=== PATIENT | male | born 1990 | race Two or more races ===

== ENCOUNTER 2023-10-18 08:59 | Emergency (ER) | payer OTHER, SELFPAY ==
--- NOTE | ~2023-10-18 | CT_ITS ---
EXAMINATION: CT ABDOMEN AND PELVIS WITHOUT CONTRAST CLINICAL INFORMATION: Left flank pain radiating to left lower quadrant. COMPARISON: None available. TECHNIQUE: Multidetector volumetric imaging was performed from the superior aspect of the liver through the pubic symphysis. Sagittal and coronal reformatted images were obtained on the technologist's workstation. This CT examination was performed using dose optimization techniques as appropriate, variously including the following: *Automated exposure control *Adjustment of mA and/or kV according to patient size (this includes techniques or standardized protocols for targeted exams where dose is matched to indication/reason for exam; i.e. extremities or head) *Use of iterative reconstruction technique DLP: 504 mGy-cm FINDINGS: LUNG BASES: The visualized lung bases are unremarkable. LIVER, GALLBLADDER, AND BILIARY TREE: The liver is normal in size, shape, and attenuation. No focal hepatic lesion or biliary ductal dilatation is present. The gallbladder is unremarkable with no evidence of radiopaque gallstones, gallbladder wall thickening, or obvious pericholecystic inflammatory changes. PANCREAS: Unremarkable. SPLEEN: Unremarkable. ADRENAL GLANDS: Unremarkable. KIDNEYS AND URETERS: The kidneys are normal in size, shape, and attenuation. There is a 4 mm radiopaque nonobstructing calculi midpole right kidney. There is a 2 mm left UVJ partially obstructive stone with minimal dilatation of distal ureter. The stone is best visualized on axial image 69/3. BLADDER: Unremarkable. GASTROINTESTINAL TRACT: There is scattered stool and gas seen throughout the colon without significant distention. The small bowel loops are normal caliber. Appendix is normal caliber. ABDOMINAL WALL: No significant hernia is appreciated. LYMPH NODES: Normal. VASCULAR: Unremarkable. PELVIC VISCERA: Unremarkable. OSSEOUS STRUCTURES: No aggressive lytic or sclerotic process seen. CT/CT abdomen pelvis wo IV con IMPRESSION: 1. 2 mm partially obstructive left UVJ stone with minimal dilatation of distal ureter. 2. Nonobstructive 4 mm radiopaque calculi midpole right kidney. 3. Mild constipation. Fleischner guidelines were followed.
[2023-10-18 09:05] VITALS: BP 137/95; BP 162/102; PULSE 76; PULSE 96; RESP 18; TEMP 36.5; O2SAT 100; O2SAT 98; BMI 31.6
--- NOTE | 2023-10-18 09:29 | PC.NURSE ---
pt arrived via ambulance, a+o x3, c/o difficulty voiding since yesterday, voided small amounts throughout the day. woke up this morning with L flank pain that radiates to his scrotum and burning when he does void. pt was bladdeer scanned on arrival to the ed, results zero urine in his bladder. pt resting quietly, no apparent distress.
--- NOTE | 2023-10-18 10:27 | ED_ITS ---
HPI - Male Genitourinary General Chief complaint: Urogenital-Male Stated complaint: FLANK PAIN,DIFF URINATING X1 DAY PER EMS Time Seen by Provider: 10/18/23 10:16 Source: patient, RN notes reviewed and old records reviewed Mode of arrival: ambulatory History of Present Illness HPI Narrative: 33-year-old male with no significant past medical history presenting to the ED complaining of left flank pain radiating to left lower quadrant since this morning with associated urinary hesitancy and nausea. Admits pain was initially constant however improved at present. Denies injury/trauma or fall. Denies fever, chills, vomiting, diarrhea, testicular pain/swelling, hematuria Related Data Previous Rx's Medication Instructions Recorded ketorolac 10 mg tablet 10 mg PO TID PRN pain 5 days #15 10/18/23 tabs tamsulosin 0.4 mg capsule (Flomax) 0.4 mg PO DAILY #14 caps 10/18/23 Allergies Allergy/AdvReac Type Severity Reaction Status Date / Time No Known Allergies Allergy Verified 10/18/23 09:27 Review of Systems 2 Review of Systems: Constitutional: No Fever, No Chills, No Fatigue, No Malaise ENT/Mouth: No Ear Pain, No sore throat, No Rhinorrhea, No Swallowing Difficulty Eyes: No Eye Pain, No Swelling, No Redness, No Vision Changes Cardiovascular: No Chest Pain, No SOB Respiratory: No Cough, No Sputum, No Dyspnea Gastrointestinal: No Nausea, No Vomiting, No Diarrhea, No Constipation, + Abdominal pain Genitourinary: No irregular bleeding, No Dysuria, No Urinary Frequency, No Hematuria, No Urinary Incontinence/retention, No Urgency, + Flank Pain, No Urinary Flow Changes, + Hesitancy Musculoskeletal: No joint pain, No Myalgias, No Joint Swelling Skin: No Skin Lesions, No rash Neuro: No Weakness, No Headache Yes all other systems are reviewed and are negative Constitutional: Constitutional: Reports as per [facility] Past Medical History Attestation statement: The following information was validated with the patient. Source: old records reviewed Social History Smoked in Last 30 Days: No Use of substances other than those prescribed or required for medical reasons: No Advance Directives: No Advance Directives Information Provided: Yes Physical Exam 2 Vital Signs: Vital Signs: Last Vital Signs Temp 97.7 F 10/18/23 09:05 Pulse 88 10/18/23 13:00 Resp 16 10/18/23 13:00 BP 142/90 H 10/18/23 10:28 Pulse Ox 97 10/18/23 13:00 O2 Del Method Room Air 10/18/23 13:00 BMI result Body Mass Index 31.6 Const: General: cooperative, healthy appearing and no acute distress O rientation/consciousness: patient oriented x3 Limitations: no limitations HEENT: Head: Yes normal to inspection and Yes atraumatic Ears: hearing grossly normal bilaterally General nose exam: Normal external nose present Face and sinus: Yes normal facial exam Eyes: General: appearance normal, both eyes and all related structures EOM: EOMs intact bilaterally Neck: Neck: Yes normal visual inspection and Yes no meningeal signs Resp: Effort & Inspection: normal respiratory effort and no respiratory distress Cardio: Rate: regular rate GI: Inspection: Yes normal to inspection Palpation (GI): Soft to palpation, nontender, no guarding and not rigid : General: Yes CVA tenderness on the left Back/Spine/Pelvis: Back: CVA tenderness Skin: Rashes: no rashes Wounds: no wounds Neuro: General: patient oriented x3, tone normal and no meningeal signs C ranial nerves: Yes CN's II-XII intact bilaterally Gait exam (Neuro): Normal gait present Extrem: General: Yes normal to inspection Course Course Course Narrative: 1245-- WBC 12.6. labs otherwise reassuring. UA with RBCs, not infected CT abdomen pelvis wo IV con IMPRESSION: 1. 2 mm partially obstructive left UVJ stone with minimal dilatation of distal ureter. 2. Nonobstructive 4 mm radiopaque calculi midpole right kidney. 3. Mild constipation. Fleischner guidelines were followed. > on re-evaluation patient reports symptomatic improvement, urinating without any hesitancy or resistance. Results discussed with patient including worrisome signs and symptoms and strict return precautions, discussed needed close follow- up with Urology. Will initiate on Flomax/Toradol. Discussed when to return to the emergency department. They verbalized understanding and feel safe for discharge at this time. Medications Administered Discontinued Medications Generic Name Dose Route Start Last Admin Trade Name Freq PRN Reason Stop Dose Admin Sodium Chloride 1,000 mls @ 999 mls/hr 10/18/23 10:30 10/18/23 12:08 Ns IV 10/18/23 11:30 Infused .Q1H1M ALPESH Infusion Ketorolac Tromethamine 15 mg 10/18/23 10:16 10/18/23 10:55 Ketorolac Tromethamine 15 Mg/Ml Vial IVPUSH 10/18/23 10:17 15 mg ONCE ONE Administration Tamsulosin HCl 0.4 mg 10/18/23 12:19 10/18/23 12:27 Tamsulosin Hcl 0.4 Mg Capsule PO 10/18/23 12:20 0.4 mg ONCE ONE Administration Medical Decision Making Medical Decision Making MDM Narrative: 33-year-old male with no significant past medical history presenting to the ED complaining of left flank pain radiating to left lower quadrant since this morning with associated urinary hesitancy and nausea. On exam vital signs stable, NAD, nontoxic appearing, abdomen soft/nontender, left CVAT noted. Concern for renal stone/colic vs UTI/pyelo. Lower suspicion for diverticulitis/colitis or appendicitis. Unlikely to speculate torsion without pain. Plan: Labs, UA, CT AP, IVF, pain control, reassess Please refer to course for remaining clinical decision making, interpretation of labs/imaging results, and discussions with consultants and/or family members. Differential Diagnosis Differential Diagnoses: The differential diagnosis associated with the presentation includes As above Admission/Observation Consideration of admission/observation: Escalation of care including admission/observation considered Lab Data [facility] Lab Attestation statement: I reviewed the patient's lab results. 10/18/23 10:26 10/18/23 10:26 Labs: Lab Results 10/18/23 10/18/23 Range/Units 10:26 12:11 WBC 12.6 H (4.8-10.8) X10*3/uL RBC 5.15 (4.60-5.80) X10*6/uL Hgb 15.2 (14.0-18.0) g/dl Hct 44.1 (42.0-52.0) % MCV 85.6 (80.0-98.0) fL MCH 29.5 (27.0-33.0) pg MCHC 34.5 (31.0-36.0) g/dl RDW 12.0 (11.0-16.0) % Plt Count 263 (160-400) X10*3/uL MPV 9.3 L (9.4-12.4) fL Immature Gran % (Auto) 0.5 H (0.0-0.4) % Neut % (Auto) 72.3 (45-73) % Lymph % (Auto) 17.5 L (20-40) % Mobile % (Auto) 7.4 (2-11) % Eos % (Auto) 2.1 (0-4) % Baso % (Auto) 0.2 (0-2) % Lymph # (Auto) 2.2 (1.2-4.9) X10*3/uL Mobile # (Auto) 0.9 (0.1-1.2) X10*3/uL Eos # (Auto) 0.3 (0.0-0.4) X10*3/uL Baso # (Auto) 0.0 (0.0-0.2) X10*3/uL Abs Immat Gran (auto) 0.06 H (0.00-0.03) X10*3/uL Absolute Neuts (auto) 9.1 H (2.0-8.3) x10*3/uL Absolute Nucleated RBC 0.000 (0.0-0.012) X10*3/uL Nucleated RBC % (auto) 0.0 (0.0-0.2) /100WBC Sodium 138 (135-145) mmol/L Potassium 3.9 (3.3-5.1) mmol/L Chloride 106 (96-108) mmol/L Carbon Dioxide 27 (22-29) mmol/L Anion Gap 9 L (12-20) BUN 8 L (9-16) mg/dL Creatinine 0.83 (0.5-1.4) mg/dL Estim Creat Clear Calc 130.9 Estimated GFR > 60 Random Glucose 112 (60-115) mg/dL Calcium 9.2 (8.4-10.2) mg/dL Magnesium 2.0 (1.6-2.6) mg/dL Total Bilirubin 0.6 (0.0-1.0) mg/dL Direct Bilirubin 0.2 (0.0-0.5) mg/dL AST 18 (5-37) U/L ALT 21 (0-40) U/L Alkaline Phosphatase 77 (39-117) U/L Total Protein 7.2 (6.5-8.0) g/dL Albumin 4.5 (3.5-5.0) g/dL Lipase 23 (8-78) U/L Urine Color Yellow Urine Appearance Clear Urine pH 5.5 (5.0-9.0) Ur Specific [place] 1.025 (1.005-1.025) Urine Protein Negative (Neg-Trace) mg/dL Urine Glucose (UA) Negative (Negative) mg/dL Urine Ketones Negative (Negative) mg/dL Urine Blood Large (3+) H (Negative) Urine Nitrite Negative (Negative) Ur Leukocyte Esterase Negative (Negative) Urine RBC 11-20 H (0-2) /HPF Urine WBC 0-5 (0-5) /HPF Ur Squamous Epith Cells 0-2 (0-2) /HPF Urine Bacteria None Seen (None Seen) Hyaline Casts 0-2 (0-2) /LPF Radiology Impression Discussion of test interpretation with radiology: I have reviewed the radiologist's reading. External Record Review External record reviewed: Inpatient record, Office record, Outpatient record, Prior outpatient labs, Prior outpatient radiology, Primary care record and Outside ED record Tests considered The following testing was considered but not selected: As above Prescription Management I considered prescription management with: Pain Medication Discharge Plan Discharge Clinical Impression: Calculus of ureterovesical junction (UVJ) Patient Disposition: Home, Self-Care Instructions: Ureteral Stones (ED) Additional Instructions: You have a 2 mm partially obstructive left UVJ stone. This should pass on its own Flomax will help dilate the ureter Toradol as an anti-inflammatory/pain medication, take with food. Do not take both Toradol, Motrin/Advil/Aleve or ibuprofen as they are all similar medications You may also take Tylenol/acetaminophen FOLLOW-UP WITH UROLOGY If symptoms persist or worsen, pain becomes unbearable/constant you have nausea/vomiting, you were unable to urinate return to the ED Prescriptions: New ketorolac 10 mg tablet 10 mg PO TID PRN (Reason: pain) 5 Days Qty: 15 0RF tamsulosin [Flomax] 0.4 mg capsule 0.4 mg PO DAILY Qty: 14 0RF Interventions: ED Discharge Assessment Last Done: 10/18/23 12:59 Discharge Date/Time: 10/18/23 13:00
[2023-10-18 10:28] VITALS: BP 142/90; PULSE 70; RESP 16; O2SAT 100
[2023-10-18 10:32] LABS: MANUAL DIFF FLAG NO
[2023-10-18 10:33] LABS: Basophils Percent Auto 0.2 % (0-2); Eosinophils Absolute Auto 0.3 X10*3/uL (0.0-0.4); Eosinophils Percent Auto 2.1 % (0-4); Hematocrit 44.1 % (42.0-52.0); Hemoglobin 15.2 g/dl (14.0-18.0); Imm Gran Abs Auto 0.06 X10*3/uL (0.00-0.03); Imm Gran Pct Auto 0.5 % (0.0-0.4); Lymphocytes Absolute Auto 2.2 X10*3/uL (1.2-4.9); Lymphocytes Percent Auto 17.5 % (20-40); Mean Corpuscular HGB Conc 34.5 g/dl (31.0-36.0); Mean Corpuscular Hemoglobin 29.5 pg (27.0-33.0); Mean Corpuscular Volume 85.6 fL (80.0-98.0); Mean Platelet Volume 9.3 fL (9.4-12.4); Monocytes Absolute Auto 0.9 X10*3/uL (0.1-1.2); Monocytes Percent Auto 7.4 % (2-11); Neutrophils Absolute Auto 9.1 x10*3/uL (2.0-8.3); Neutrophils Percent Auto 72.3 % (45-73); Platelet Count 263 X10*3/uL (160-400); Red Blood Count 5.15 X10*6/uL (4.60-5.80); White Blood Count 12.6 X10*3/uL (4.8-10.8)
[2023-10-18 10:49] LABS: Alanine Aminotransferase 21 U/L (0-40); Albumin Level 4.5 g/dL (3.5-5.0); Alkaline Phosphatase 77 U/L (39-117); Anion Gap 9 (12-20); Aspartate Amino Transferase 18 U/L (5-37); Bilirubin Direct 0.2 mg/dL (0.0-0.5); Bilirubin Total 0.6 mg/dL (0.0-1.0); Blood Urea Nitrogen 8 mg/dL (9-16); Calcium 9.2 mg/dL (8.4-10.2); Carbon Dioxide 27 mmol/L (22-29); Chloride 106 mmol/L (96-108); Creatinine Clr Calc Pharmacy 130.9; Estimated Glomerular Filt Rate > 60; Glucose Random 112 mg/dL (60-115); Lipase 23 U/L (8-78); Potassium 3.9 mmol/L (3.3-5.1); Sodium 138 mmol/L (135-145); Total Protein 7.2 g/dL (6.5-8.0)
[2023-10-18] MEDS: Ketorolac Tromethamine 15 MG/ML VIAL IVPUSH (10:55)
[2023-10-18] MEDS: 0.9 % Sodium Chloride 1,000 ML 999 ML IV (10:56)
--- NOTE | 2023-10-18 11:01 | PC.NURSE ---
Assumed care of patient at 1055, patient resting on stretcher reporting 7/10 testicular pain that started this morning. Denies other complaints, respirations even and unlabored, skin pwd, alert and oriented x4. Denies dysuria, hematuria and any trauma
--- NOTE | 2023-10-18 11:29 | PC.NURSE ---
LATE ENTRY: PT ARRIVED VIA EMS WITH C/O DIFFICULTY URINATING SINCE YESTERDAY. HE REPORTED THAT HE VOIDED SMALL AMOUNTS YESTERDAY. HE SAID THIS MORNING HE WOKE UP WITH SHARP L FLANK PAIN THAT RADIATES TO HIS SCROTUM AND BURNING WHEN HE VOIDS. PT BLADDER SCANNED ON ARRIVAL TO ER, RESULTS ZERO. PT DENIES ABD PAIN. NOT ON ANY PRESCRIPTIVE MEDS. NO OTHER COMPLAINTS. VSS. PT FELL ASLEEP AFTER TRIAGE. ANOTHER RN ASSUMED CARE OF THIS PT AT 1100.
[2023-10-18 12:25] LABS: Appearance Urine Clear; Color Urine Yellow; Glucose Urine UA Negative (Negative); Leukocyte Esterase Urine Negative (Negative); Nitrite Urine Negative (Negative); PH 5.5 (5.0-9.0); Specific Gravity - Urine 1.025 (1.005-1.025); UMIC TRIGGER UACC YES; Urine Blood Large (3+) (Negative); Urine Ketones Negative (Negative); Urine Protein Negative (Neg-Trace)
[2023-10-18] MEDS: Tamsulosin HCL 0.4 MG CAPSULE PO (12:27)
--- NOTE | 2023-10-18 12:30 | PC.NURSE ---
PT MEDICATED DOCUMENTED.
[2023-10-18 12:34] LABS: Bacteria Urine None Seen (None Seen); Hyaline Casts Urine 0-2 /LPF (0-2); Squamous Epithelial Cell Urine 0-2 /HPF (0-2); WBC Urine 0-5 /HPF (0-5)
[2023-10-18 13:00] VITALS: PULSE 88; RESP 16; O2SAT 97
== END 2023-10-18 13:00 | disposition home or self-care (01) ==
PROVIDERS: Physician Assistant; Emergency Provider Emergency Medicine Emergency Medical Services
DX: N20.1 Calculus of ureter (principal); R10.9 Unspecified abdominal pain; R10.32 Left lower quadrant pain; R33.9 Retention of urine, unspecified; Z79.899 Other long term (current) drug therapy
CPT/HCPCS: 36415; 74176; 80048; 80076; 81001; 83690; 83735; 85025; 96361; 96374; 99284; 99285; J1885

== ENCOUNTER 2023-10-19 06:26 | Emergency (ER) | payer OTHER, SELFPAY ==
--- NOTE | ~2023-10-19 | US_ITS ---
EXAMINATION: US RETROPERITONEAL LIMITED (RENAL ONLY) CLINICAL INFORMATION: Flank pain. COMPARISON: CT stone study 10/18/2023 TECHNIQUE: Real-time sonographic evaluation FINDINGS: RIGHT KIDNEY: 11.6 x 3.4 x 6.1 cm (SAG x AP x TRV). The kidney is normal in size, contour, and echogenicity. Renal cortical thickness is normal. Lower pole stone nonobstructive at 6 x 4 x 5 mm. No parenchymal lesions. LEFT KIDNEY: 10.2 x 5.5 x 5.1 cm (SAG x AP x TRV). The kidney is normal in size, contour, and echogenicity. Renal cortical thickness is normal. No calculi or focal parenchymal lesions. No hydronephrosis. Bilateral ureteral jets noted. US/US renal BI IMPRESSION: No evidence for left hydronephrosis at this time..
[2023-10-19 06:33] VITALS: BP 162/84; PULSE 72; O2SAT 100
[2023-10-19 06:35] VITALS: BP 132/89; PULSE 78; RESP 16; TEMP 36.4; O2SAT 100
[2023-10-19 06:47] VITALS: BMI 33.1
--- NOTE | 2023-10-19 07:14 | PC.NURSE ---
ASSUMED CARE OF PT AT THIS TIME
[2023-10-19 07:58] VITALS: BP 125/77; PULSE 68; RESP 18; O2SAT 99
[2023-10-19 08:10] LABS: MANUAL DIFF FLAG NO
[2023-10-19 08:19] LABS: Basophils Percent Auto 0.3 % (0-2); Eosinophils Absolute Auto 0.1 X10*3/uL (0.0-0.4); Eosinophils Percent Auto 0.3 % (0-4); Hematocrit 42.1 % (42.0-52.0); Hemoglobin 14.6 g/dl (14.0-18.0); Imm Gran Pct Auto 0.7 % (0.0-0.4); Lymphocytes Absolute Auto 1.5 X10*3/uL (1.2-4.9); Mean Corpuscular HGB Conc 34.7 g/dl (31.0-36.0); Mean Corpuscular Hemoglobin 30.4 pg (27.0-33.0); Mean Corpuscular Volume 87.7 fL (80.0-98.0); Mean Platelet Volume 9.6 fL (9.4-12.4); Monocytes Absolute Auto 0.9 X10*3/uL (0.1-1.2); Monocytes Percent Auto 6.2 % (2-11); Neutrophils Absolute Auto 12.4 x10*3/uL (2.0-8.3); Neutrophils Percent Auto 82.5 % (45-73); Platelet Count 265 X10*3/uL (160-400); Red Cell Distribution Width 12.1 % (11.0-16.0); White Blood Count 15.1 X10*3/uL (4.8-10.8)
--- NOTE | 2023-10-19 08:25 | ED_ITS ---
HPI - General Adult General Chief complaint: General Medical Stated complaint: LEFT FLANK PAIN Time Seen by Provider: 10/19/23 07:32 Source: patient and EMS Mode of arrival: EMS Limitations: no limitations History of Present Illness HPI narrative: 33 year old male with pmhx significant for psoriasis presents to the ED today via EMS with left flank pain worsening over the last 24 hours since being discharge from our facility with diagnosis of 2mm non-obstructing UVJ stone. He was discharged home with Toradol and tamsulosin yesterday. He reports taking these as prescribed without relief of symptoms. He woke around 0100 this morning feeling nauseous, reports 2 episodes of vomiting and has had chills. His pain has continued despite Toradol, last dose at 2:00 a.m.. Last urinated this morning. Last BM was yesterday. Denies fevers, sore throat, neck or back pain, abdominal pain, diarrhea, dysuria or hematuria. Denies recent travel. No known sick contacts. Denies etoh consumption. Related Data Previous Rx's Medication Instructions Recorded ketorolac 10 mg tablet 10 mg PO TID PRN pain 5 days #15 10/18/23 tabs tamsulosin 0.4 mg capsule (Flomax) 0.4 mg PO DAILY #14 caps 10/18/23 ondansetron 4 mg disintegrating 4 mg PO DAILY PRN nausea and 10/19/23 tablet vomiting 5 days #14 tabs Allergies Allergy/AdvReac Type Severity Reaction Status Date / Time No Known Allergies Allergy Verified 10/19/23 06:33 Review of Systems 2 Review of Systems: Constitutional: No fever, +chills, No fatigue, night sweats, weight changes ENT/Mouth: No ear pain, hearing loss, nasal congestion, sinus pain, rhinorrhea, sore throat Eyes: No eye pain, swelling, redness, vision changes, discharge Cardio: No chest pain, palpitations, ANTOINE, orthopnea, peripheral edema Pulm: No SOB, cough, sputum, wheezing, dyspnea, hemoptysis GI: +nausea, +vomiting, No hematemesis, abdominal pain, diarrhea, constipation, hematochezia, melena : No irregular bleeding, dysuria, frequency, urgency, hesitancy, hematuria, +left flank pain, No urinary flow changes, urinary incontinence or retention MSK: No back pain, neck pain, joint pain, myalgias Skin: No lesions, rashes Neuro: No weakness, numbness, paresthesias, LOC, dizziness, headache All other systems reviewed and are negative. [facility] Past Medical History Attestation statement: The following information was validated with the patient. Source: old records reviewed and nursing notes reviewed Social History Alcohol intake: never Smoked in Last 30 Days: Yes Use of substances other than those prescribed or required for medical reasons: Yes Substance Use Type: Marijuana Substance Use Frequency: Daily Advance Directives: No Advance Directives Information Provided: No Physical Exam ED Vital Signs: Vital Signs - 24 hr 10/19/23 06:35 10/19/23 07:58 10/19/23 09:01 Temperature 97.6 F Pulse Rate 78 68 67 Respiratory Rate 16 18 Blood Pressure 132/89 125/77 Pulse Oximetry 100 99 98 Oxygen Delivery Method Room Air Room Air Room Air 10/19/23 11:11 10/19/23 13:02 Temperature 98.1 F 98.2 F Pulse Rate 73 87 Respiratory Rate 12 18 Blood Pressure 111/69 125/86 Pulse Oximetry 99 100 Oxygen Delivery Method Room Air Room Air BMI result Body Mass Index 33.1 Vital signs stable Const Other: + Uncomfortable appearing, rolling around in pain General: cooperative, alert and awake Orientation/consciousness: patient oriented x3 Limitations: no limitations HENMT Mouth: Normal oral and palatal mucosa present and moist mucous membranes Eyes General: appearance normal, both eyes and all related structures Conjunctivae: conjunctivae normal Sclerae: sclerae normal Pupils: Equal, round and reactive pupils present Neck Neck: Yes normal visual inspection, Yes full ROM, Yes no lymphadenopathy and Yes no meningeal signs Resp Effort & Inspection: normal respiratory effort and able to speak in complete sentences Auscultation: clear to auscultation bilaterally Cardio Rate: regular rate Rhythm: regular rhythm Peripheral pulses: radial pulses present GI Other: + Abd soft, NT/ND, no rebound tenderness or guarding, normoactive BS x4. Positive left CVAT. Other: +Left CVAT Back/Spine/Pelvis Other: No midline spinous tenderness. No paraspinal muscle tenderness bilaterally. No step-off deformity. Skin General skin exam: no rashes or lesions noted Neuro General: patient oriented x3, gait normal, moves all extremities and no meningeal signs Cranial nerves: Yes Equal, round and reactive pupils present Extrem General: Yes normal to inspection and Yes full ROM Course Course Course Narrative: 1241-- CBC with slight bump in WBC when compared to yesterday > likely reactive secondary to multiple episodes of vomiting this morning. H&H stable. Normal renal function. Lactic acid WNL. Lipase WNL. Repeat urine is negative for infection however shows large amount of blood & RBCs indicative of possible renal stone passage. Repeat CT abdomen pelvis not warranted at this time as there is a known 2 mm stone at the UVJ. Renal US does not demonstrate hydronephrosis. > Patient's workup is unremarkable. He is likely passing the 2 mm UVJ stone that was identified on imaging yesterday. On re-evaluation, patient states that his pain have improved with morphine and Zofran. He is lying comfortably in bed. Has not had anymore episodes of vomiting while in ED. Tolerating PO at bedside. Informed him of his unremarkable workup. Will send him home with Zofran and advised him to continue taking Toradol and tamsulosin as prescribed. Will also provide him with a referral to Urology to follow up with. Discussed strict return precautions. All questions answered at this time. Patient is agreeable disposition and stable for discharge. Medications Administered Discontinued Medications Generic Name Dose Route Start Last Admin Trade Name Taeq PRN Reason Stop Dose Admin Sodium Chloride 1,000 mls @ 999 mls/hr 10/19/23 08:00 10/19/23 09:45 Ns IV 10/19/23 09:00 Infused .Q1H1M ALPESH Infusion Morphine Sulfate 4 mg 10/19/23 08:34 10/19/23 08:47 Morphine Sulfate 4 Mg/Ml Cartridge IVPUSH 10/19/23 08:35 4 mg ONCE ONE Administration Protocol Ondansetron HCl 4 mg 10/19/23 07:57 10/19/23 08:47 Ondansetron Hcl 4 Mg/2 Ml Vial IVPUSH 10/19/23 07:58 4 mg ONCE ONE Administration Medical Decision Making Medical Decision Making [facility] Narrative: 33 year old male with pmhx significant for psoriasis presents to the ED today via EMS with left flank pain worsening over the last 24 hours since being discharge from our facility with diagnosis of 2mm non-obstructing UVJ stone. VSS, afebrile. On exam, abd soft, ND/NT, no rebound tenderness or guarding. Normoactive bs x4. Positive left sided CVAT. No midline or paraspinal mm tenderness b/l. Clinical concern for renal colic, nephrolithiasis, hydronephrosis, obstructive uropathy, msk sprain/strain. Unlikely pyelonephritis. pancreatitis, SBO, ischemic bowel, or acute abdomen. Plan for labs, renal US, pain control, and re-eval. Differential Diagnosis Differential Diagnoses: The differential diagnosis associated with the presentation includes As above. Admission/Observation Not indicated. Lab Data MDM Lab Attestation statement: I reviewed the patient's lab results. As above. 10/19/23 08:04 10/19/23 08:04 Labs: Lab Results 10/19/23 10/19/23 Range/Units 08:04 11:18 WBC 15.1 H (4.8-10.8) X10*3/uL RBC 4.80 (4.60-5.80) X10*6/uL Hgb 14.6 (14.0-18.0) g/dl Hct 42.1 (42.0-52.0) % MCV 87.7 (80.0-98.0) fL MCH 30.4 (27.0-33.0) pg MCHC 34.7 (31.0-36.0) g/dl RDW 12.1 (11.0-16.0) % Plt Count 265 (160-400) X10*3/uL MPV 9.6 (9.4-12.4) fL Immature Gran % (Auto) 0.7 H (0.0-0.4) % Neut % (Auto) 82.5 H (45-73) % Lymph % (Auto) 10.0 L (20-40) % [place] % (Auto) 6.2 (2-11) % Eos % (Auto) 0.3 (0-4) % Baso % (Auto) 0.3 (0-2) % Lymph # (Auto) 1.5 (1.2-4.9) X10*3/uL [place] # (Auto) 0.9 (0.1-1.2) X10*3/uL Eos # (Auto) 0.1 (0.0-0.4) X10*3/uL Baso # (Auto) 0.0 (0.0-0.2) X10*3/uL Abs Immat Gran (auto) 0.10 H (0.00-0.03) X10*3/uL Absolute Neuts (auto) 12.4 H (2.0-8.3) x10*3/uL Absolute Nucleated RBC 0.000 (0.0-0.012) X10*3/uL Nucleated RBC % (auto) 0.0 (0.0-0.2) /100WBC Sodium 140 (135-145) mmol/L Potassium 3.9 (3.3-5.1) mmol/L Chloride 107 (96-108) mmol/L Carbon Dioxide 29 (22-29) mmol/L Anion Gap 8 L (12-20) BUN 12 (9-16) mg/dL Creatinine 1.01 (0.5-1.4) mg/dL Estim Creat Clear Calc 109.9 Estimated GFR > 60 Random Glucose 111 (60-115) mg/dL Lactic Acid 0.7 (0.5-2.0) mmol/L Calcium 9.2 (8.4-10.2) mg/dL Magnesium 2.0 (1.6-2.6) mg/dL Total Bilirubin 0.7 (0.0-1.0) mg/dL AST 28 (5-37) U/L ALT 30 (0-40) U/L Alkaline Phosphatase 68 (39-117) U/L Total Protein 6.9 (6.5-8.0) g/dL Albumin 4.2 (3.5-5.0) g/dL Lipase 21 (8-78) U/L Urine Color Yellow Urine Appearance Clear Urine pH 7.5 (5.0-9.0) Ur Specific [place] 1.015 (1.005-1.025) Urine Protein Negative (Neg-Trace) mg/dL Urine Glucose (UA) Negative (Negative) mg/dL Urine Ketones Negative (Negative) mg/dL Urine Blood Large (3+) H (Negative) Urine Nitrite Negative (Negative) Ur Leukocyte Esterase Negative (Negative) Urine RBC >20 H (0-2) /HPF Urine WBC 0-5 (0-5) /HPF Ur Squamous Epith Cells 0-2 (0-2) /HPF Urine Bacteria None Seen (None Seen) Hyaline Casts 0-2 (0-2) /LPF Independent Interpretation I performed an independent interpretation of an: Ultrasound Interpretation: Ultrasound bilateral kidneys without enlargement, agree with radiologist's interpretation. Radiology Impression Discussion of test interpretation with radiology: I have reviewed the radiologist's reading. Radiologist Impression: US renal BI IMPRESSION: No evidence for left hydronephrosis at this time. External Record Review External record reviewed: Inpatient record, Office record, Outpatient record, Prior outpatient labs, Prior outpatient radiology, Primary care record and Outside ED record Tests considered The following testing was considered but not selected: Considered obtaining CT abdomen/ pelvis however imaging performed yesterdya and labs are unremarkable, not warranted at this time. Prescription Management I considered prescription management with: Pain Medication and Other (antiemetic) Chronic Conditions Patient?s care impacted by: Other (Nephrolithiasis) Critical Care Time Critical Care Time Critical Care Time: No Discharge Plan Discharge Clinical Impression: Calculus of ureterovesical junction (UVJ) Patient Disposition: Home, Self-Care Additional Instructions: Your labs today are unremarkable. The ultrasound of your kidneys did not show evidence of enlargement. Your urine did not show evidence of infection however did show blood indicative of passing a renal stone. Zofran as an antiemetic medication that been sent to pharmacy. You received a dose of this in the emergency department. Take this as needed for nausea or vomiting. You were prescribed Toradol along with tamsulosin yesterday. Take these as prescribed to help pass stone. You have been provided with a referral to a urologist. You may call them to make an appointment. They will not call you. If your symptoms return or worsen or you have difficulty urinating, return to the emergency department. The case of an emergency call 911. Prescriptions: New ondansetron 4 mg tablet,disintegrating 4 mg PO DAILY PRN (Reason: nausea and vomiting) 5 Days Qty: 14 0RF No Action ketorolac 10 mg tablet 10 mg PO TID PRN (Reason: pain) 5 Days Qty: 15 0RF tamsulosin [Flomax] 0.4 mg capsule 0.4 mg PO DAILY Qty: 14 0RF Referrals: [facility] [Provider Group] Stand Alone Forms: Work/School Release Interventions: ED Discharge Assessment Last Done: 10/19/23 13:04 Discharge Date/Time: 10/19/23 13:04
[2023-10-19 08:31] LABS: Alanine Aminotransferase 30 U/L (0-40); Albumin Level 4.2 g/dL (3.5-5.0); Alkaline Phosphatase 68 U/L (39-117); Anion Gap 8 (12-20); Aspartate Amino Transferase 28 U/L (5-37); Blood Urea Nitrogen 12 mg/dL (9-16); Calcium 9.2 mg/dL (8.4-10.2); Carbon Dioxide 29 mmol/L (22-29); Chloride 107 mmol/L (96-108); Creatinine Clr Calc Pharmacy 109.9; Estimated Glomerular Filt Rate > 60; Glucose Random 111 mg/dL (60-115); Lipase 21 U/L (8-78); Potassium 3.9 mmol/L (3.3-5.1); Sodium 140 mmol/L (135-145); Total Protein 6.9 g/dL (6.5-8.0)
[2023-10-19 08:38] LABS: Bilirubin Total 0.7 mg/dL (0.0-1.0)
[2023-10-19] MEDS: 0.9 % Sodium Chloride 1,000 ML 999 ML IV (08:47)
[2023-10-19] MEDS: Morphine Sulfate 4 MG/ML CARTRIDGE IVPUSH (08:47)
[2023-10-19] MEDS: ondansetron HCL 4 MG/2 ML VIAL IVPUSH (08:47)
[2023-10-19 09:01] VITALS: PULSE 67; O2SAT 98
[2023-10-19 11:11] VITALS: BP 111/69; PULSE 73; RESP 12; TEMP 36.7; O2SAT 99
[2023-10-19 11:29] LABS: Appearance Urine Clear; Color Urine Yellow; Glucose Urine UA Negative (Negative); Leukocyte Esterase Urine Negative (Negative); Nitrite Urine Negative (Negative); PH 7.5 (5.0-9.0); Specific Gravity - Urine 1.015 (1.005-1.025); UMIC TRIGGER UACC YES; Urine Blood Large (3+) (Negative); Urine Ketones Negative (Negative); Urine Protein Negative (Neg-Trace)
[2023-10-19 11:32] LABS: Bacteria Urine None Seen (None Seen); Hyaline Casts Urine 0-2 /LPF (0-2); RBC Urine >20 /HPF (0-2); Squamous Epithelial Cell Urine 0-2 /HPF (0-2); WBC Urine 0-5 /HPF (0-5)
[2023-10-19 11:37] LABS: Lactic Acid 0.7 mmol/L (0.5-2.0)
[2023-10-19 13:02] VITALS: BP 125/86; PULSE 87; RESP 18; TEMP 36.8; O2SAT 100
== END 2023-10-19 13:04 | disposition home or self-care (01) ==
PROVIDERS: Physician Assistant Medical; Emergency Provider Emergency Medicine
DX: N20.1 Calculus of ureter (principal); R10.9 Unspecified abdominal pain; L40.9 Psoriasis, unspecified; R11.10 Vomiting, unspecified
CPT/HCPCS: 36415; 76775; 80053; 81001; 83605; 83690; 83735; 85025; 96361; 96374; 96375; 99284; J2270; J2405

== ENCOUNTER 2025-05-11 14:39 | Emergency (ER) | payer OTHER, SELFPAY ==
--- NOTE | ~2025-05-11 | XR_ITS ---
CLINICAL HISTORY: severe pain 3 days 5 view, pelvis and bilateral hips Comparison: None Findings: The bones are intact. No fracture deformity. Bilateral hip joint spaces are preserved. No widening of the SI joints or pubic symphysis. No significant arthritic change. The soft tissues are unremarkable. IMPRESSION: No acute findings. This document has been electronically signed by: Bill Butler MD on 05/11/2025 15:46:36
[2025-05-11 14:42] VITALS: BP 125/91; PULSE 76; RESP 16; TEMP 36.8; O2SAT 100; BMI 30.2
--- NOTE | 2025-05-11 14:42 | ED_ITS ---
HPI - General Adult General Chief complaint: Extremity Problem Stated complaint: hip pain Time Seen by Provider: 05/11/25 15:47 Source: patient Limitations: no limitations History of Present Illness HPI narrative: 35-year-old male who has a history of psoriasis, kidney stones, presents for evaluation of low back and bilateral hip pain. Patient states that on he was working on a car, and had been using a creeper. He does not usually use one of these devices. Patient states that evening he started feeling sore in his low back. He denies any history of low back problems. He tried Tylenol without relief. Upon awakening yesterday he reports that his pain is worse, primarily in the low back and radiates to his hips bilaterally. Symptoms have persisted. He reports feeling sore and stiff and he was having difficulty ambulating today and therefore reports the emergency department. He denies any fevers chills nausea or vomiting. No bowel or bladder incontinence. No paresthesias or paralysis. No direct trauma. It has otherwise been feeling well. No saddle anesthesia. Related Data Previous Rx's ?Medication ?Instructions ?Recorded ketorolac 10 mg tablet 10 mg PO TID PRN pain 5 days #15 10/18/23 tabs tamsulosin 0.4 mg capsule (Flomax) 0.4 mg PO DAILY #14 caps 10/18/23 ondansetron 4 mg disintegrating 4 mg PO DAILY PRN nausea and 10/19/23 tablet vomiting 5 days #14 tabs dexamethasone 4 mg tablet 4 mg PO BID #10 tabs 05/11/25 lidocaine 4 % topical patch 1 patch topical BID PRN pain #15 ea 05/11/25 methocarbamol 750 mg tablet 750 mg PO Q8H PRN muscle pain #20 05/11/25 tabs Allergies Allergy/AdvReac Type Severity Reaction Status Date / Time No Known Allergies Allergy Verified 05/11/25 14:44 Review of Systems 2 Constitutional: Constitutional: Denies chills and Denies fever(s) ENT: Denies neck pain Cardiovascular: Cardiovascular: Denies chest pain, Denies dyspnea, Denies dyspnea on exertion and Denies orthopnea Respiratory: Respiratory: Denies cough, Denies dyspnea and Denies dyspnea on exertion Gastrointestinal: Gastrointestinal: Denies abdominal pain, Denies melena, Denies hematochezia, Denies diarrhea, Denies nausea and Denies vomiting Genitourinary: Genitourinary: Denies difficulty urinating, Denies dysuria and Denies urinary urgency Musculoskeletal: Musculoskeletal: Reports back pain, Denies arthralgias, Denies muscle cramps, Denies muscle weakness, Denies neck pain and Denies numbness Integumentary/Breasts: Skin/Breast: Denies rash Neurologic: Denies focal weakness and Denies numbness [facility] Social History Social History Alcohol intake: never Smoked in Last 30 Days: No Use of substances other than those prescribed or required for medical reasons: No Substance Use Type: Marijuana Advance Directives: No Advance Directives Information Provided: No Do you have a plan to hurt others: No Plan Physical Exam ED Vital Signs: Vital Signs - 24 hr 05/11/25 14:42 05/11/25 17:28 Temperature 98.3 F 98.4 F Pulse Rate 76 57 Respiratory Rate 16 14 Blood Pressure 125/91 H 119/82 Pulse Oximetry 100 99 Oxygen Delivery Method Room Air Room Air BMI result Body Mass Index 30.2 [facility] Head: Yes normal to inspection Neck Other: No spinous, paraspinous or paravertebral tenderness Resp Auscultation: clear to auscultation bilaterally Cardio Rate: regular rate GI Other: Abdomen is soft and nontender. No CVAT Back/Spine/Pelvis Other: Track Template Maker is 5/5 bilaterally. Full range of motion of all 4 extremities. Decreased range of motion of lower extremity secondary to pain. There is diffuse tenderness in the lumbar region most notably over the SI joints bilaterally. There is bilateral sciatic notch tenderness. DP pulses are +2 and equal bilaterally. There is no calf tenderness. Skin Other: Psoriatic plaques scattered throughout the patient's body. No secondary signs of infection Course Course Course Narrative: This is a rapid medical exam performed by Henrik Car NP: Additional HPI, ROS, PE not included below will be deferred to primary provider. Patient is a 35-year-old male presenting with complaint of bilateral hip pain x 3 days. Denies trauma. Reporting decreased ROM and difficulty ambulating. Started after working on a car which is not abnormal for him. Tylenol without relief. Plan: xray, labs including tick panel Reevaluation(s) Reevaluation #1: May 11, 2025, 5:22 p.m. time spent at this time, patient reports significant improvement and has more range of motion. Patient does report still having discomfort. No bowel or bladder incontinence. He feels comfortable with discharge plan home. Patient has a ride that will be picking him up. Reviewed all discharge instructions. No further questions at this time. Medications Administered Discontinued Medications Generic Name Dose Route Start Last Admin Trade Name Dipesh PRN Reason Stop Dose Admin Dexamethasone Sodium Phosphate 8 mg 05/11/25 15:58 05/11/25 16:12 Dexamethasone Sod Phosphate 4 Mg/Ml Vial IVPUSH 05/11/25 15:59 8 mg ONCE ONE Administration Sodium Chloride 1,000 mls @ 999 mls/hr 05/11/25 16:00 05/11/25 17:12 Ns IV 05/11/25 17:00 Infused .Q1H1M ALPESH Infusion Ketorolac Tromethamine 15 mg 05/11/25 15:58 05/11/25 16:12 Ketorolac Tromethamine 15 Mg/Ml Vial IVPUSH 05/11/25 15:59 15 mg ONCE ONE Administration Morphine Sulfate 4 mg 05/11/25 15:58 05/11/25 16:13 Morphine Sulfate 4 Mg/Ml Cartridge IVPUSH 05/11/25 15:59 4 mg ONCE ONE Administration Protocol Medical Decision Making Medical Decision Making [facility] Narrative: 35-year-old male with a history of psoriasis, kidney stones, with a 2 day history of low back and bilateral leg pain. Suspect related to patient's recent working underneath a car on a creeper. Fadi of cauda equina. No secondary signs of infection. Labs unremarkable. Slight leukocytosis which is consistent with the patient's previous labs. Slight elevation in CRP could be related to current injury or patient has history of psoriasis. Patient is afebrile without any neuro deficits, no indication for MRI at this time. Differential Diagnosis Differential Diagnoses: The differential diagnosis associated with the presentation includes Disc herniation Sciatica Sacroiliitis Nerve impingement Muscle spasm Lab Data [facility] Lab Attestation statement: I reviewed the patient's lab results. 05/11/25 14:54 05/11/25 14:54 Labs: Lab Results 05/11/25 Range/Units 14:54 WBC 11.3 H (4.8-10.8) X10*3/uL RBC 5.18 (4.60-5.80) X10*6/uL Hgb 15.1 (14.0-18.0) g/dl Hct 44.5 (42.0-52.0) % MCV 85.9 (80.0-98.0) fL MCH 29.2 (27.0-33.0) pg MCHC 33.9 (31.0-36.0) g/dl RDW 12.9 (11.0-16.0) % Plt Count 379 D (160-400) X10*3/uL MPV 8.8 L (9.4-12.4) fL Immature Gran % (Auto) 0.4 (0.0-0.4) % Neut % (Auto) 67.2 (45-73) % Lymph % (Auto) 19.6 L (20-40) % [place] % (Auto) 8.3 (2-11) % Eos % (Auto) 3.7 (0-4) % Baso % (Auto) 0.8 (0-2) % Lymph # (Auto) 2.2 (1.2-4.9) X10*3/uL [place] # (Auto) 0.9 (0.1-1.2) X10*3/uL Eos # (Auto) 0.4 (0.0-0.4) X10*3/uL Baso # (Auto) 0.1 (0.0-0.2) X10*3/uL Abs Immat Gran (auto) 0.05 H (0.00-0.03) X10*3/uL Absolute Neuts (auto) 7.6 (2.0-8.3) x10*3/uL Absolute Nucleated RBC 0.000 (0.0-0.012) X10*3/uL Nucleated RBC % (auto) 0.0 (0.0-0.2) /100WBC ESR 13 (0-15) MM/HR Sodium 143 (135-145) mmol/L Potassium 3.9 (3.3-5.1) mmol/L Chloride 107 (96-108) mmol/L Carbon Dioxide 27 (22-29) mmol/L Anion Gap 13 (12-20) BUN 10 (9-16) mg/dL Creatinine 0.99 (0.5-1.4) mg/dL Estim Creat Clear Calc 101.8 Estimated GFR > 60 Random Glucose 115 (60-115) mg/dL Calcium 9.5 (8.4-10.2) mg/dL C-Reactive Protein 1.07 H (< or = 0.50) mg/dL Radiology Impression Discussion of test interpretation with radiology: I have reviewed the radiologist's reading. Radiologist Impression: [address] [address] XRay Report Signed Patient: John Ventura MR#: [id number] : 1990 Acct:[id number] Age/Sex: 35 / M ADM Date: 05/11/25 Loc: HO.ED Attending Dr: Ordering Physician: Paradise Car NP Date of Service: 05/11/25 Procedure(s): XR hip BI w [id number] Accession Number(s): [id number] cc: Physician,Unknown ; Paradise Car NP~ CLINICAL HISTORY: severe pain 3 days 5 view, pelvis and bilateral hips Comparison: None Findings: The bones are intact. No fracture deformity. Bilateral hip joint spaces are preserved. No widening of the SI joints or pubic symphysis. No significant arthritic change. The soft tissues are unremarkable. IMPRESSION: No acute findings. This document has been electronically signed by: Bill Butler MD on 05/11/2025 15:46:36 Dictated By: Bill Butler MD Signed By: <Electronically signed by Bill Butler MD in OV> 05/11/25 1547 DD/ 1546 TD/TT: 05/11/25 1546 Subacute Nurse: Discharge Plan Discharge Clinical Impression: Bilateral sacroiliitis Patient Disposition: Home, Self-Care Instructions: Sacroiliitis (ED) Additional Instructions: Rest. Avoid strenuous activity. Warm compresses to the affected area. Decadron as directed. Robaxin as directed for pain and muscle spasm. Lidocaine patches to the affected area. Watch for any worsening of symptoms, severe pain, inability to control your urine or bowels, fevers, any other concern return immediately to the emergency department. Follow-up with your primary care provider. Call this week to schedule a follow- up appointment. Return to the emergency department if you have any worsening of symptoms, or any concerns. Get well soon! Prescriptions: New methocarbamol 750 mg tablet 750 mg PO Q8H PRN (Reason: muscle pain) Qty: 20 0RF dexamethasone 4 mg tablet 4 mg PO BID Qty: 10 0RF lidocaine 4 % adhesive patch,medicated 1 patch topical BID PRN (Reason: pain) Qty: 15 0RF No Action ondansetron 4 mg tablet,disintegrating 4 mg PO DAILY PRN (Reason: nausea and vomiting) 5 Days Qty: 14 0RF ketorolac 10 mg tablet 10 mg PO TID PRN (Reason: pain) 5 Days Qty: 15 0RF tamsulosin [Flomax] 0.4 mg capsule 0.4 mg PO DAILY Qty: 14 0RF Print Language: Italian
[2025-05-11 14:58] LABS: MANUAL DIFF FLAG NO
[2025-05-11 15:00] LABS: Basophils Absolute Auto 0.1 X10*3/uL (0.0-0.2); Basophils Percent Auto 0.8 % (0-2); Eosinophils Absolute Auto 0.4 X10*3/uL (0.0-0.4); Eosinophils Percent Auto 3.7 % (0-4); Hematocrit 44.5 % (42.0-52.0); Hemoglobin 15.1 g/dl (14.0-18.0); Imm Gran Abs Auto 0.05 X10*3/uL (0.00-0.03); Imm Gran Pct Auto 0.4 % (0.0-0.4); Lymphocytes Absolute Auto 2.2 X10*3/uL (1.2-4.9); Lymphocytes Percent Auto 19.6 % (20-40); Mean Corpuscular HGB Conc 33.9 g/dl (31.0-36.0); Mean Corpuscular Hemoglobin 29.2 pg (27.0-33.0); Mean Corpuscular Volume 85.9 fL (80.0-98.0); Mean Platelet Volume 8.8 fL (9.4-12.4); Monocytes Absolute Auto 0.9 X10*3/uL (0.1-1.2); Monocytes Percent Auto 8.3 % (2-11); Neutrophils Absolute Auto 7.6 x10*3/uL (2.0-8.3); Neutrophils Percent Auto 67.2 % (45-73); Platelet Count 379 X10*3/uL (160-400); Red Blood Count 5.18 X10*6/uL (4.60-5.80); Red Cell Distribution Width 12.9 % (11.0-16.0); White Blood Count 11.3 X10*3/uL (4.8-10.8)
[2025-05-11 15:23] LABS: Anion Gap 13 (12-20); Blood Urea Nitrogen 10 mg/dL (9-16); C Reactive Protein 1.07 mg/dL (< or = 0.50); Calcium 9.5 mg/dL (8.4-10.2); Carbon Dioxide 27 mmol/L (22-29); Chloride 107 mmol/L (96-108); Creatinine Clr Calc Pharmacy 101.8; Estimated Glomerular Filt Rate > 60; Glucose Random 115 mg/dL (60-115); Potassium 3.9 mmol/L (3.3-5.1); Sodium 143 mmol/L (135-145)
[2025-05-11 15:46] LABS: Erythrocyte Sedimentation Rate 13 MM/HR (0-15)
[2025-05-11] MEDS: 0.9 % Sodium Chloride 1,000 ML 999 ML IV (16:11)
[2025-05-11] MEDS: Ketorolac Tromethamine 15 MG/ML VIAL IVPUSH (16:12)
[2025-05-11] MEDS: dexAMETHasone sod phosphate 4 MG/ML VIAL 8 MG IVPUSH (16:12)
[2025-05-11] MEDS: Morphine Sulfate 4 MG/ML CARTRIDGE IVPUSH (16:13)
[2025-05-11 17:28] VITALS: BP 119/82; PULSE 57; RESP 14; TEMP 36.9; O2SAT 99
[2025-05-11 17:42] VITALS: BP 119/82; PULSE 57; RESP 14; TEMP 36.9; O2SAT 99
[2025-05-15 05:29] LABS: A. Phagocytphilium DNA,RT-PCR NOT DETECTED (NOT DETECTED); Babesia Microti DNA, RT-PCR NOT DETECTED (NOT DETECTED); Borrelia Miyamotoi,DNA RT-PCR NOT DETECTED (NOT DETECTED); E.Chaffeensis DNA RT-PCR NOT DETECTED (NOT DETECTED); Lyme(Borrelia ssp)DNA RT-PCR NOT DETECTED (NOT DETECTED)
== END 2025-05-11 17:43 | disposition home or self-care (01) ==
PROVIDERS: Registered Nurse Emergency; Emergency Provider Internal Medicine
DX: M46.1 Sacroiliitis, not elsewhere classified (principal); M25.552 Pain in left hip; M25.551 Pain in right hip; Z79.899 Other long term (current) drug therapy
CPT/HCPCS: 36415; 73521; 80048; 85025; 85652; 86140; 87468; 87469; 87478; 87484; 87798; 96361; 96374; 96375; 99284; 99285; J1100; J1885; J2270

== ENCOUNTER → 2025-05-11 14:44 | Outpatient (BNV) | payer OTHER, SELFPAY | PROVIDERS: Visit Provider Radiology Diagnostic Radiology | DX: M25.551 Pain in right hip (principal); M25.552 Pain in left hip | CPT/HCPCS: 73521 ==

== ENCOUNTER 2025-07-23 10:41 | Emergency (ER) | payer OTHER, SELFPAY ==
--- NOTE | ~2025-07-23 | XR_ITS ---
Exam: Three-view bilateral hand x-rays TECHNIQUE: PA, ball-catcher's, and lateral views, bilateral hands INDICATION: Pain and swelling Prior: None FINDINGS: RIGHT HAND: Bone mineral density is within normal limits. Joint spaces are preserved. There are no erosions. No osteophytes are evident. LEFT HAND: Bone mineral density is within normal limits. Joint spaces are preserved. There are no erosions. No osteophytes are evident. XR/XR Hand Bilat min 3v Impression: Unremarkable bilateral hands. Electronically signed by: Thiago Giron MD 07/23/2025 12:13 PM EDT
--- NOTE | ~2025-07-23 | XR_ITS ---
Exam: Three-view bilateral feet x-rays TECHNIQUE: AP, oblique, and lateral view x-rays bilateral feet Prior: None INDICATION: Foot swelling FINDINGS: RIGHT FOOT: Marginal sites are evident at the first metatarsophalangeal joint. Minimal osteophyte formation is also noted at the IP joint of the great toe. Otherwise, joint spaces are preserved without osteophytes or erosions. LEFT FOOT: Small marginal sites are present involving the medial first metatarsal head. No other osteophytes are evident. Joint spaces are preserved. There is no joint diastases or malalignment. XR/XR Foot Christiano 3V IMPRESSION: Right foot demonstrates mild osteoarthritis involving the IP and MTP joints of the great toe. The left foot demonstrates mild osteoarthritis involving the first MTP joint. Electronically signed by: Thiago Giron MD 07/23/2025 12:16 PM EDT
[2025-07-23 11:36] VITALS: BP 131/92; PULSE 77; RESP 18; TEMP 36.9; O2SAT 100; BMI 26.8
--- NOTE | 2025-07-23 12:22 | ED_ITS ---
HPI - General Adult General Chief complaint: Extremity Problem Stated complaint: Pain & swelling in hands/feet Time Seen by Provider: 07/23/25 14:26 Source: patient Mode of arrival: ambulatory Limitations: no limitations History of Present Illness ED Provider: Kemi Faustin PA-C HPI narrative: Patient is a 35 year old assigned male at with a history of psoriasis presenting to the emergency department today with joint pain, low back pain, and psoriasis flare to his upper arms. Patient states that he has a long standing history of psoriasis for which he is currently on no medication and does not follow with a java engineer. Patient states that the last 2 weeks he has had a psoriasis flare and with that has come these pains. Patient states that the last time this happened he got dexamethasone and felt much better. Patient denies any other complaints at this time. Onset (ago): week(s) (2) Related Data Previous Rx's ?Medication ?Instructions ?Recorded ketorolac 10 mg tablet 10 mg PO TID PRN pain 5 days #15 10/18/23 tabs tamsulosin 0.4 mg capsule (Flomax) 0.4 mg PO DAILY #14 caps 10/18/23 ondansetron 4 mg disintegrating 4 mg PO DAILY PRN naus ea and 10/19/23 tablet vomiting 5 days #14 tabs dexamethasone 4 mg tablet 4 mg PO BID #10 tabs 5 lidocaine 4 % topical patch 1 patch topical BID PRN pa in #15 ea 05/11/25 methocarbamol 750 mg tablet 750 mg PO Q8H PRN muscle p ain #20 05/11/25 tabs dexamethasone 4 mg tablet 4 mg PO BID #10 tabs 5 Allergies Allergy/AdvReac Type Severity Reaction Status Date / Time No Known Allergies Allergy Verified 07/23/25 11:40 Review of Systems 2 Constitutional: Constitutional: Reports as per HPI Eyes: Eyes: Reports as per HPI ENT: Reports as per HPI Cardiovascular: Cardiovascular: Reports as per HPI Respiratory: Respiratory: Reports as per HPI Gastrointestinal: Gastrointestinal: Reports as per HPI Genitourinary: Genitourinary: Reports as per HPI Musculoskeletal: Comments: joint back back pain bilateral foot pain Integumentary/Breasts: Comments: psoriasis flare to upper arms Neurologic: Reports as per HPI Psychiatric: Psychiatric: Reports as per HPI Endocrine: Endocrine: Reports as per HPI Hematologic/Lymphatic: Hematologic/Lymphatic: Reports as per HPI Allergic/Immunologic: Allergic/Immunologic: Reports as per HPI [facility] Past Medical History Attestation statement: The following information was validated with the patient. Source: old records reviewed and nursing notes reviewed Social History Social History Alcohol intake: never Smoked in Last 30 Days: Yes Use of substances other than those prescribed or required for medical reasons: Yes Substance Use Type: Marijuana Substance Use Frequency: Daily Advance Directives: No Advance Directives Information Provided: Yes Physical Exam ED Vital Signs: Vital Signs - 24 hr 07/23/25 14:53 Temperature 98.4 F Pulse Rate 77 Respiratory Rate 18 Blood Pressure 131/92 H Pulse Oximetry 100 BMI result Body Mass Index 26.8 Const General: cooperative, no acute distress, alert and awake Nutritional Appearance: well nourished Orientation/consciousness: patient oriented x3 HENMT Head: Yes normal to inspection and Yes atraumatic Ears: hearing grossly normal bilaterally and external ears normal General nose exam: Normal external nose present, no nasal discharge noted and no epistaxis Face and sinus: Yes normal facial exam, No abrasion and No laceration Mouth: Normal oral and palatal mucosa present, no drooling and no muffled voice Eyes General: appearance normal, both eyes and all related structures Periorbital: periorbital findings normal Eyelids: Yes eyelids normal Conjunctivae: conjunctivae normal Pupils: Equal, round and reactive pupils present EOM: EOMs intact bilaterally Neck Neck: Yes normal visual inspection and Yes full ROM Resp Effort & Inspection: normal respiratory effort and able to speak in complete sentences Skin Other: psoriasis present to the bilateral upper arms Neuro General: patient oriented x3, moves all extremities and CN's II-XI intact bilaterally Cranial nerves: Yes Equal, round and reactive pupils present Cognition (Neuro): normal cognition Extrem General: Yes normal to inspection, Yes full ROM and Yes capillary refill normal Psych Appearance: grossly normal Mental Status: mental status grossly normal Affect: normal affect Attitude: cooperative Thought process: Normal thought process present Thought content: Normal thought content present Insight: Good insight present (Psych) Course Course Course Narrative: RME: 55-year-old male history of psoriasis presents to ED for bilateral hands and feet swelling back pain with psoriasis flare-up. Patient has not seen a java engineer for awhile. Patient denies any fever chills chest pain or shortness of breath. Patient states hands and feet feel stiff. Medications Administered Discontinued Medications Generic Name Dose Route Start Last Admin Trade Name Dipesh PRN Reason Stop Dose Admin Methylprednisolone Sodium Succinate 60 mg 07/23/25 14:36 07/23/25 14:46 Methylprednisolone Sod Succ 125 Mg/2 Ml Vial IM 07/23/25 14:37 60 mg ONCE ONE Administration Medical Decision Making Medical Decision Making [facility] Narrative: Patient is a 35 year old assigned male at with a history of psoriasis presenting to the emergency department today with joint pain, low back pain, and psoriasis flare to his upper arms. Patient's physical exam was as noted in the physical exam portion of this note. Patient's blood work showed a mildly elevated WBC count of 13 but otherwise unremarkable. Patient's bilateral hand and foot x-rays showed no acute process. I am suspicious the patient has psoriatic arthritis and is experiencing a flare. I explained my physical exam findings as well as all test results to the patient. I answered all questions asked by the patient. Patient stated that the last time this happened, Dexamethasone helped him significantly - so that is what I have prescribed the patient. I stressed the importance of the patient taking his medication as directed (either prescribed or as the over the counter packaging recommends). I stressed the importance of the patient following up with his primary care provider and a java engineer. I stressed the importance of the patient returning to the emergency department immediately if his symptoms were to worsen or if he were to develop any dizziness, shortness of breath, difficulty breathing, chest pain, blurry vision, loss of vision, nausea, vomiting, abdominal pain, fever, chills, back pain, or any other complaints. Patient verbalized agreement and understanding with this treatment plan and discharge. Differential Diagnosis Differential Diagnoses: The differential diagnosis associated with the presentation includes Arthritis Joint pain Psoriasis Psoriatic arthritis Admission/Observation Consideration of admission/observation: Escalation of care including admission/observation considered Patient would have been admitted to the hospital had his work up had any findings where hospital admission was appropriate and his clinical presentation warranted hospital admission. Lab Data [facility] Lab Attestation statement: I reviewed the patient's lab results. My interpretation of these results are in the [facility] Rationale portion of this note. 07/23/25 13:45 07/23/25 13:45 Labs: Lab Results 08/26/25 Range/Units 13:45 WBC 13.0 H (4.8-10.8) X10*3/uL RBC 5.07 (4.60-5.80) X10*6/uL Hgb 15.1 (14.0-18.0) g/dl Hct 43.3 (42.0-52.0) % MCV 85.4 (80.0-98.0) fL MCH 29.8 (27.0-33.0) pg MCHC 34.9 (31.0-36.0) g/dl RDW 12.2 (11.0-16.0) % Plt Count 321 (160-400) X10*3/uL MPV 9.0 L (9.4-12.4) fL Immature Gran % (Auto) 0.5 H (0.0-0.4) % Neut % (Auto) 72.4 (45-73) % Lymph % (Auto) 15.7 L (20-40) % Hernando % (Auto) 8.9 (2-11) % Eos % (Auto) 2.2 (0-4) % Baso % (Auto) 0.3 (0-2) % Lymph # (Auto) 2.0 (1.2-4.9) X10*3/uL Hernando # (Auto) 1.2 (0.1-1.2) X10*3/uL Eos # (Auto) 0.3 (0.0-0.4) X10*3/uL Baso # (Auto) 0.0 (0.0-0.2) X10*3/uL Abs Immat Gran (auto) 0.07 H (0.00-0.03) X10*3/uL Absolute Neuts (auto) 9.4 H (2.0-8.3) x10*3/uL Absolute Nucleated RBC 0.000 (0.0-0.012) X10*3/uL Nucleated RBC % (auto) 0.0 (0.0-0.2) /100WBC PT 11.9 (10.9-12.4) SEC INR 1.0 (0.9-1.1) APTT 32.9 (26.7-34.1) SEC Sodium 140 (135-145) mmol/L Potassium 4.2 (3.3-5.1) mmol/L Chloride 106 (96-108) mmol/L Carbon Dioxide 26 (22-29) mmol/L Anion Gap 12 (12-20) BUN 11 (9-16) mg/dL Creatinine 0.96 (0.5-1.4) mg/dL Estim Creat Clear Calc 102.9 Estimated GFR > 60 Random Glucose 98 (60-115) mg/dL Calcium 9.5 (8.4-10.2) mg/dL Total Bilirubin 0.5 (0.0-1.0) mg/dL AST 19 (5-37) U/L ALT 10 (0-40) U/L Alkaline Phosphatase 95 (39-117) U/L Total Creatine Kinase 65 (38-174) U/L B-Natriuretic Peptide < 10 (<100) pg/mL Total Protein 7.4 (6.5-8.0) g/dL Albumin 4.6 (3.5-5.0) g/dL Independent Interpretation I performed an independent interpretation of an: Plain X-Ray Interpretation: My interpretation is in agreement with the radiologist's impression of these imaging studies. L Exam: Three-view bilateral feet x-rays TECHNIQUE: AP, oblique, and lateral view x-rays bilateral feet Prior: None INDICATION: Foot swelling FINDINGS: RIGHT FOOT: Marginal sites are evident at the first metatarsophalangeal joint. Minimal osteophyte formation is also noted at the IP joint of the great toe. Otherwise, joint spaces are preserved without osteophytes or erosions. LEFT FOOT: Small marginal sites are present involving the medial first metatarsal head. No other osteophytes are evident. Joint spaces are preserved. There is no joint diastases or malalignment. XR/XR Foot Christiano 3V IMPRESSION: Right foot demonstrates mild osteoarthritis involving the IP and MTP joints of the great toe. The left foot demonstrates mild osteoarthritis involving the first MTP joint. Electronically signed by: Thiago Giron MD 07/23/2025 12:16 PM EDT Dictated By: Thiago Giron MD Signed By: Electronically signed by Thiago Giron MD 07/23/25 1216 Exam: Three-view bilateral hand x-rays TECHNIQUE: PA, ball-catcher's, and lateral views, bilateral hands INDICATION: Pain and swelling Prior: None FINDINGS: RIGHT HAND: Bone mineral density is within normal limits. Joint spaces are preserved. There are no erosions. No osteophytes are evident. LEFT HAND: Bone mineral density is within normal limits. Joint spaces are preserved. There are no erosions. No osteophytes are evident. XR/XR Hand Bilat min 3v Impression: Unremarkable bilateral hands. Electronically signed by: Thiago Giron MD 07/23/2025 12:13 PM EDT RP Dictated By: Thiago Giron MD Signed By: Electronically signed by Thiago Giron MD 07/23/25 1213 Radiology Impression Discussion of test interpretation with radiology: I have reviewed the radiologist's reading. Discharge Plan Discharge Clinical Impression: Arthritis Patient Disposition: Home, Self-Care Instructions: Psoriasis (ED), Arthritis (ED) Additional Instructions: I am suspicious this is psoriartic arthritis. You need to follow up with your primary care provider and java engineer about this. IF you are prescribed home medications and/or you are taking over the counter medications at home - it is very important you continue to do so as prescribed / directed unless told otherwise. Follow up with your primary care provider. Return to the emergency department immediately if your symptoms worsen or if you develop any numbness, tingling, dizziness, shortness of breath, difficulty breathing, chest pain, blurry vision, loss of vision, nausea, vomiting, abdominal pain, fever, chills, back pain, or any other complaints. Please see the information below about our Patient Portal. If you are not yet enrolled in the [facility] Patient Portal, you will receive an enrollment email invitation following your visit to any [facility] care setting. You may also self-enroll in the Patient Portal by visiting our website: [email or web address] The following information is required to access the Patient Portal: - Your [facility] Medical Record Number - Your personal home email address (must match what is in your electronic medical record, Registration staff can assist with this) - Name - Date of Capabilities of the Patient Portal: - Message some providers - View upcoming appointments - Access your health summary, medical history, and visit history - View current conditions and allergies - View procedure and lab results - View your medications, including guidelines, side effects, and precautions - Complete pre-appointment questionnaires requested by your provider - Ready summary reports of your office visits and procedures To access the Patient Portal Mobile [employer], follow these directions: - Search [employer] in the [employer] Store or [employer] Store - Download the [employer] - Search for [facility] - Enter your login/password Prescriptions: New dexamethasone 4 mg tablet 4 mg PO BID Qty: 10 0RF No Action ondansetron 4 mg tablet,disintegrating 4 mg PO DAILY PRN (Reason: nausea and vomiting) 5 Days Qty: 14 0RF ketorolac 10 mg tablet 10 mg PO TID PRN (Reason: pain) 5 Days Qty: 15 0RF tamsulosin [Flomax] 0.4 mg capsule 0.4 mg PO DAILY Qty: 14 0RF methocarbamol 750 mg tablet 750 mg PO Q8H PRN (Reason: muscle pain) Qty: 20 0RF dexamethasone 4 mg tablet 4 mg PO BID Qty: 10 0RF lidocaine 4 % adhesive patch,medicated 1 patch topical BID PRN (Reason: pain) Qty: 15 0RF Referrals: Dave Mason III, MD [Primary Care Provider, Medical] Interventions: ED Discharge Assessment Last Done: 07/23/25 14:53 Discharge Date/Time: 07/23/25 14:54 Print Language: Gibraltarian
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
--- OUTSIDE RECORDS SUMMARY | 2025-07-23 13:16 | XMS_ITS ---
Author Name [facility] Organization Unknown Care Team Organization Name Specialty Phone Email Start Date End Da te [facility] TRISTA LEANDER Primary Care 10/05/2022 4
[2025-07-23 13:50] LABS: MANUAL DIFF FLAG NO
[2025-07-23 13:58] LABS: INTERNATIONAL NORM RATIO 1.0 (0.9-1.1); Prothrombin Time 11.9 SEC (10.9-12.4)
[2025-07-23 14:00] LABS: Hematocrit 43.3 % (42.0-52.0); Hemoglobin 15.1 g/dl (14.0-18.0); Imm Gran Abs Auto 0.07 X10*3/uL (0.00-0.03); Imm Gran Pct Auto 0.5 % (0.0-0.4); Lymphocytes Absolute Auto 2.0 X10*3/uL (1.2-4.9); Mean Corpuscular HGB Conc 34.9 g/dl (31.0-36.0); Mean Corpuscular Hemoglobin 29.8 pg (27.0-33.0); Mean Corpuscular Volume 85.4 fL (80.0-98.0); NRBC Abs Auto 0.000 X10*3/uL (0.0-0.012); NRBC Pct Auto 0.0 /100WBC (0.0-0.2); Platelet Count 321 X10*3/uL (160-400); Red Blood Count 5.07 X10*6/uL (4.60-5.80); White Blood Count 13.0 X10*3/uL (4.8-10.8)
[2025-07-23 14:01] LABS: Partial Thromboplastin Time 32.9 SEC (26.7-34.1)
[2025-07-23 14:10] LABS: Alanine Aminotransferase 10 U/L (0-40); Albumin Level 4.6 g/dL (3.5-5.0); Alkaline Phosphatase 95 U/L (39-117); Anion Gap 12 (12-20); Aspartate Amino Transferase 19 U/L (5-37); Blood Urea Nitrogen 11 mg/dL (9-16); Calcium 9.5 mg/dL (8.4-10.2); Carbon Dioxide 26 mmol/L (22-29); Chloride 106 mmol/L (96-108); Creatinine Clr Calc Pharmacy 102.9; Estimated Glomerular Filt Rate > 60; Potassium 4.2 mmol/L (3.3-5.1); Sodium 140 mmol/L (135-145); Total Protein 7.4 g/dL (6.5-8.0)
[2025-07-23 14:14] LABS: B Type Natriuretic Peptide < 10 pg/mL (<100)
[2025-07-23 14:53] VITALS: BP 131/92; PULSE 77; RESP 18; TEMP 36.9; O2SAT 100
== END 2025-07-23 14:54 | disposition home or self-care (01) ==
PROVIDERS: Physician Assistant; Emergency Provider Emergency Medicine Emergency Medical Services; PCP Internal Medicine
DX: M79.89 Other specified soft tissue disorders (principal); M13.812 Other specified arthritis, left shoulder; M13.811 Other specified arthritis, right shoulder; Z79.899 Other long term (current) drug therapy
CPT/HCPCS: 36415; 73130; 73630; 80053; 82550; 83880; 85025; 85610; 85730; 96372; 99284; J2919

== ENCOUNTER → 2025-07-23 11:41 | Outpatient (BNV) | payer OTHER, SELFPAY | PROVIDERS: PCP Internal Medicine; Visit Provider Radiology Diagnostic Radiology | DX: M79.641 Pain in right hand (principal); M79.642 Pain in left hand; M79.89 Other specified soft tissue disorders | CPT/HCPCS: 73130; 73630 ==

== ENCOUNTER 2025-08-18 05:03 | Emergency (ER) | payer OTHER, SELFPAY ==
--- NOTE | ~2025-08-18 | CT_ITS ---
CLINICAL HISTORY: L flank pain - hx of kidney stones - CT Stone study done. CT abdomen and pelvis without contrast Comparison: None provided Findings: The lung bases are clear. 2 mm left ureterovesicular junction stone associated with upstream mild hydronephrosis/hydroureter. A few nonobstructive right renal stones measuring up to 3 mm. No bowel obstruction, pneumoperitoneum, or pneumatosis. Atherosclerotic calcifications. Appendix not seen and therefore could not be evaluated. No evidence of inflammatory right lower quadrant fatty changes. Empty urinary bladder. No acute fracture. Rest of visualized abdominopelvic viscera are unremarkable (superior most aspect of the abdomen was out of field of view). IMPRESSION: 2 mm left ureterovesicular junction stone associated with upstream mild hydronephrosis/hydroureter. This document has been electronically signed by: Dawna Huber MD on 08/18/2025 08:22:37
[2025-08-18 05:07] VITALS: BP 135/85; PULSE 77; O2SAT 99
[2025-08-18 05:11] VITALS: BP 179/111; PULSE 66; RESP 22; TEMP 36.4; O2SAT 99; BMI 27.3
[2025-08-18 05:20] LABS: MANUAL DIFF FLAG NO
[2025-08-18 05:21] LABS: Hematocrit 42.9 % (42.0-52.0); Hemoglobin 15.4 g/dl (14.0-18.0); Imm Gran Abs Auto 0.06 X10*3/uL (0.00-0.03); Imm Gran Pct Auto 0.4 % (0.0-0.4); Lymphocytes Absolute Auto 4.1 X10*3/uL (1.2-4.9); Mean Corpuscular HGB Conc 35.9 g/dl (31.0-36.0); Mean Corpuscular Hemoglobin 29.7 pg (27.0-33.0); Mean Corpuscular Volume 82.7 fL (80.0-98.0); NRBC Abs Auto 0.000 X10*3/uL (0.0-0.012); NRBC Pct Auto 0.0 /100WBC (0.0-0.2); Platelet Count 440 X10*3/uL (160-400); Red Blood Count 5.19 X10*6/uL (4.60-5.80); White Blood Count 15.5 X10*3/uL (4.8-10.8)
[2025-08-18 05:41] LABS: Alanine Aminotransferase 11 U/L (0-40); Albumin Level 4.8 g/dL (3.5-5.0); Alkaline Phosphatase 103 U/L (39-117); Anion Gap 16 (12-20); Aspartate Amino Transferase 25 U/L (5-37); Blood Urea Nitrogen 11 mg/dL (9-16); Calcium 9.7 mg/dL (8.4-10.2); Carbon Dioxide 22 mmol/L (22-29); Chloride 107 mmol/L (96-108); Creatinine Clr Calc Pharmacy 96.8; Estimated Glomerular Filt Rate > 60; Lipase 40 U/L (8-78); Potassium 3.8 mmol/L (3.3-5.1); Sodium 141 mmol/L (135-145); Total Protein 8.0 g/dL (6.5-8.0)
--- NOTE | 2025-08-18 05:45 | ED_ITS ---
HPI - Abdominal Pain General Chief Complaint: Abdominal Pain Stated Complaint: L Side Abd Pain Time Seen by Provider: 08/18/25 05:34 History of Present Illness ED Provider: Tj Sullivan MD HPI narrative: 35-year-old male with history of psoriasis and ureteral colic with severe abrupt left lower quadrant/left flank pain. Denies fever or chills started about 13:00 and started escalating overnight. Related Data Previous Rx's ?Medication ?Instructions ?Recorded ketorolac 10 mg tablet 10 mg PO TID PRN pain 5 days #15 10/18/23 tabs tamsulosin 0.4 mg capsule (Flomax) 0.4 mg PO DAILY #14 caps 10/18/23 ondansetron 4 mg disintegrating 4 mg PO DAILY PRN naus ea and 10/19/23 tablet vomiting 5 days #14 tabs dexamethasone 4 mg tablet 4 mg PO BID #10 tabs 5 lidocaine 4 % topical patch 1 patch topical BID PRN pa in #15 ea 05/11/25 methocarbamol 750 mg tablet 750 mg PO Q8H PRN muscle p ain #20 05/11/25 tabs dexamethasone 4 mg tablet 4 mg PO BID #10 tabs 5 ibuprofen 600 mg tablet 600 mg PO Q8H PRN pain #30 t abs 08/18/25 oxycodone 5 mg tablet 5 mg PO Q8H PRN pain #7 tabs 08/18/25 tamsulosin 0.4 mg capsule (Flomax) 0.4 mg PO DAILY #6 caps 08/18/25 Allergies Allergy/AdvReac Type Severity Reaction Status Date / Time No Known Allergies Allergy Verified 08/18/25 05:13 [facility] Social History Social History Alcohol intake: never Substance Use Type: Marijuana Physical Exam ED Exam Exam: EXAM: Gen: Alert, awake, writhing appears in severe pain Head: Atraumatic Eyes: Anicteric, Normal conjunctiva. ENT: Moist mucosa, no pallor. ? Neck: Supple. Skin: ?Diffuse plaque psoriasis Respiratory: Breathing comfortably, No distress.Clear to auscultation bilaterally, symmetric chest expansion, No wheeze, rales, ronchi. Cardiovascular: Regular rate and rhythm. No murmurs or rub. Well perfused periphery, warm extremities. No edema. ? Abdominal: Mild left lower quadrant and left flank tenderness Soft, no objective distension. No palpable masses or obvious organomegaly. ?No guarding, no rebound tenderness or other peritoneal findings. : No flank tenderness. Neuro: Alert. Gross movement of all extremities intact. ? Psych: Calm. Cooperative. MSK: No grossly visible deformity. Vital signs: See flowsheet Vital Signs: Vital Signs - 24 hr 08/18/25 05:11 08/18/25 06:35 08/18/25 08:00 Temperature 97.5 F 97.7 F Pulse Rate 66 48 L 53 Respiratory Rate 22 H 18 16 Blood Pressure 179/111 H 141/94 H 137/98 H Pulse Oximetry 99 100 100 Oxygen Delivery Method Room Air Room Air Room Air 08/18/25 10:00 Temperature Pulse Rate 66 Respiratory Rate 20 Blood Pressure 123/75 Pulse Oximetry 100 Oxygen Delivery Method Room Air BMI result Body Mass Index 27.3 Procedures Procedure Narrative Procedure Narrative: EMERGENCY ULTRASOUND INTERPRETATION-Limited Retroperitoneal (Renal) [This study was ordered, performed, and interpreted by myself. The study reveals: Impression: Left-sided hydronephrosis mild [Indication: FLANK PAIN Bladder: Not visualized Left Kidney: Mild hydronephrosis Performed by: Tj Sullivan MD Images were stored CPT: 36840] Course Reevaluation(s) Reevaluation #1: DR. Quispe's progress note: I assumed care for this patient at 06:[address] Hogan patient had a CT abdomen and pelvis which showed 2 mm obstructing stone in the left UVJ with hydronephrosis, will give a dose of pain medication and follow-up with patient will be discharged on Flomax, ibuprofen 600 mg, oxycodone 5 mg PRN. Time: 09:21 Medical Decision Making Lab Data 08/18/25 05:16 08/18/25 05:16 Labs: Lab Results 08/18/25 08/18/25 Range/Units 05:16 09:00 WBC 15.5 H (4.8-10.8) X10*3/uL RBC 5.19 (4.60-5.80) X10*6/uL Hgb 15.4 (14.0-18.0) g/dl Hct 42.9 (42.0-52.0) % MCV 82.7 (80.0-98.0) fL MCH 29.7 (27.0-33.0) pg MCHC 35.9 (31.0-36.0) g/dl RDW 11.9 (11.0-16.0) % Plt Count 440 H D (160-400) X10*3/uL MPV 9.0 L (9.4-12.4) fL Immature Gran % (Auto) 0.4 (0.0-0.4) % Neut % (Auto) 63.3 (45-73) % Lymph % (Auto) 26.2 (20-40) % [place] % (Auto) 7.7 (2-11) % Eos % (Auto) 2.1 (0-4) % Baso % (Auto) 0.3 (0-2) % Lymph # (Auto) 4.1 (1.2-4.9) X10*3/uL [place] # (Auto) 1.2 (0.1-1.2) X10*3/uL Eos # (Auto) 0.3 (0.0-0.4) X10*3/uL Baso # (Auto) 0.0 (0.0-0.2) X10*3/uL Abs Immat Gran (auto) 0.06 H (0.00-0.03) X10*3/uL Absolute Neuts (auto) 9.8 H (2.0-8.3) x10*3/uL Absolute Nucleated RBC 0.000 (0.0-0.012) X10*3/uL Nucleated RBC % (auto) 0.0 (0.0-0.2) /100WBC Sodium 141 (135-145) mmol/L Potassium 3.8 (3.3-5.1) mmol/L Chloride 107 (96-108) mmol/L Carbon Dioxide 22 (22-29) mmol/L Anion Gap 16 (12-20) BUN 11 (9-16) mg/dL Creatinine 1.02 (0.5-1.4) mg/dL Estim Creat Clear Calc 96.8 Estimated GFR > 60 Random Glucose 119 H (60-115) mg/dL Calcium 9.7 (8.4-10.2) mg/dL Total Bilirubin 0.5 (0.0-1.0) mg/dL AST 25 (5-37) U/L ALT 11 (0-40) U/L Alkaline Phosphatase 103 (39-117) U/L Total Protein 8.0 (6.5-8.0) g/dL Albumin 4.8 (3.5-5.0) g/dL Lipase 40 (8-78) U/L Urine Color Dark Yellow Urine Appearance Turbid Urine pH 5.5 (5.0-9.0) Ur Specific [place] >= 1.030 H (1.005-1.025) Urine Protein 30 (1+) H (Neg-Trace) mg/dL Urine Glucose (UA) Negative (Negative) mg/dL Urine Ketones 15 (Negative) mg/dL Urine Blood Large (3+) H (Negative) Urine Nitrite Negative (Negative) Ur Leukocyte Esterase Negative (Negative) Urine RBC 3-5 H (0-2) /HPF Urine WBC 0-5 (0-5) /HPF Ur Squamous Epith Cells 3-5 (0-2) /HPF Other Crystals Present Urine Bacteria None Seen (None Seen) Hyaline Casts 3-5 (0-2) /LPF Ethyl Alcohol < 10 mg/dL Medications Administered Discontinued Medications Generic Name Dose Route Start Last Admin Trade Name Freq PRN Reason Stop Dose Admin Hydromorphone HCl 1 mg 08/18/25 05:44 08/18/25 05:57 Hydromorphone Hcl 1 Mg/Ml Syringe IVPUSH 08/18/25 05:45 1 mg ONCE ONE Administration Protocol Hydromorphone HCl 1 mg 08/18/25 09:27 08/18/25 09:37 Hydromorphone Hcl 1 Mg/Ml Syringe IVPUSH 08/18/25 09:28 1 mg ONCE ONE Administration Protocol Sodium Chloride 1,000 mls @ 999 mls/hr 08/18/25 05:45 08/18/25 07:00 Ns IV 08/18/25 06:45 Infused .Q1H1M ALPESH Infusion Sodium Chloride 1,000 mls @ 999 mls/hr 08/18/25 09:30 08/18/25 10:37 Ns IV 08/18/25 10:30 Infused .Q1H1M ONE Infusion Ketorolac Tromethamine 30 mg 08/18/25 05:44 08/18/25 05:57 Ketorolac Tromethamine 30 Mg/Ml Vial IVPUSH 08/18/25 05:45 30 mg ONCE ONE Administration Ketorolac Tromethamine 15 mg 08/18/25 09:30 08/18/25 09:37 Ketorolac Tromethamine 15 Mg/Ml Vial IVPUSH 08/18/25 09:31 15 mg ONCE ONE Administration Ondansetron HCl 4 mg 08/18/25 09:30 08/18/25 09:37 Ondansetron Hcl 4 Mg/2 Ml Vial IVPUSH 08/18/25 09:31 4 mg ONCE ONE Administration Discharge Plan Discharge Clinical Impression: Renal colic Patient Disposition: Home, Self-Care Instructions: Renal Colic (ED) Prescriptions: New tamsulosin [Flomax] 0.4 mg capsule 0.4 mg PO DAILY Qty: 6 0RF ibuprofen 600 mg tablet 600 mg PO Q8H PRN (Reason: pain) Qty: 30 0RF oxycodone 5 mg tablet 5 mg PO Q8H PRN (Reason: pain) Qty: 7 0RF Rx Instructions: Partial Fill upon patient request. No Action ondansetron 4 mg tablet,disintegrating 4 mg PO DAILY PRN (Reason: nausea and vomiting) 5 Days Qty: 14 0RF ketorolac 10 mg tablet 10 mg PO TID PRN (Reason: pain) 5 Days Qty: 15 0RF tamsulosin [Flomax] 0.4 mg capsule 0.4 mg PO DAILY Qty: 14 0RF methocarbamol 750 mg tablet 750 mg PO Q8H PRN (Reason: muscle pain) Qty: 20 0RF dexamethasone 4 mg tablet 4 mg PO BID Qty: 10 0RF lidocaine 4 % adhesive patch,medicated 1 patch topical BID PRN (Reason: pain) Qty: 15 0RF dexamethasone 4 mg tablet 4 mg PO BID Qty: 10 0RF Referrals: Perry Mario MD [Physician, Urology] Interventions: ED Discharge Assessment Last Done: 08/18/25 11:07 Discharge Date/Time: 08/18/25 11:09 Print Language: Hong Konger
--- OUTSIDE RECORDS SUMMARY | 2025-08-18 06:27 | XMS_ITS | Clinical Summary ---
Author Organization [address] Address [address] [place] [phone] Phone Care Team Providers Care Gunstock Repairer Name Role Phone Dave Mason MD Primary Care Provider [phone] Allergies No known active allergies Medications secukinumab (Cosentyx Pen) 150 mg/mL pen injector Sig - Route: Inject 300 mg into the skin See Admin Instructions. Inject 300 mg on Week 0,1,2,3,4 - Subcutaneous 0 Active secukinumab (Cosentyx Pen) 150 mg/mL pen injector Inject 2 mL (300 mg total) under the skin every 28 (twenty-eight) days. 1 Active lidocaine HCl-hydrocortis on ac 3-1 % (7 gram) kit Apply [...] the office 2 tablet 5 Active lidocaine HCl-hydrocortis on ac 3-0.5 % cream Use daily 7 g 5 Active Active Problems Problem Noted Date Diagnosed Date [...] 10/31/2022 Social Influencers of Health Screening 10/31/2022 Depression Screening 11/28/2024 02/21/2024 COVID-19 Vaccine ( season) 2025 Influenza Vaccine (#1) 2025 08/20/2010, 2004 DTaP,Tdap,and [...] Maintenance Results * (ABNORMAL) Lipid panel (05/08/2024) LDL/HDL Ratio 6(A) 0 - 4 Triglycerides 222(A) 0 - 150 mg/dL Cholesterol 176 0 - 200 mg/dL HDL 31(A) >=40 mg/dL LDL Cholesterol 101(A) 0 - 100 mg/dL Blood Venous blood specimen / Unknown Historical Provider LAB BLOOD ORDERABLES Caryl l Result * Depression Screening (02/21/2024) Pathologist [facility] Depression Screening abstracted Historical Provider HEALTH MAINTENANCE Final Result * Hepatitis C Screening (03/03/2017) Pathologist [facility] Hepatitis C Screening abstracted Historical Provider HEALTH MAINTENANCE Final Result from Last 3 Months or Most Recently Relevant to Health Maintenance Insurance [employer] Care Teams Gunstock Repairer Relationship Specialty Start Date End Date Dave Mason MD [address] [place] [phone] PCP - General Internal Medicine 10/17/13
[2025-08-18 06:35] VITALS: BP 141/94; PULSE 48; RESP 18; TEMP 36.5; O2SAT 100
--- NOTE | 2025-08-18 06:41 | MHC.EDTECH ---
attempted to collect a urine sample pt stated he cant, urine cup/urinal at bedside
[2025-08-18 08:00] VITALS: BP 137/98; PULSE 53; RESP 16; O2SAT 100
--- NOTE | 2025-08-18 08:15 | PC.NURSE ---
Addendum entered by Zahra Vasques RN 08/18/25 08:59: CT shows 2 mm left ureterovesicular junction stone associated with upstream mild hydronephrosis/hydroureter. Original Note: Patient is a 35-year-old male with history of psoriasis and ureteral colic with severe abrupt left lower quadrant/left flank pain. Alert and oriented. Lungs clear bilat. Respirations even and non-labored. Abdomen soft, with positive bowel sounds. continues to complain of LLQ abdominal pain. Positive pedal pulses with no edema. CT results pending.
[2025-08-18 09:10] LABS: Appearance Urine Turbid; Glucose Urine UA Negative (Negative); PH 5.5 (5.0-9.0); Specific Gravity - Urine >= 1.030 (1.005-1.025); UMIC TRIGGER UACC YES
[2025-08-18 09:22] LABS: Other Crystals Urine Present
[2025-08-18 10:00] VITALS: BP 123/75; PULSE 66; RESP 20; O2SAT 100
[2025-08-18 11:07] VITALS: BP 123/75; PULSE 66; RESP 20; TEMP 36.7; O2SAT 100
== END 2025-08-18 11:09 | disposition home or self-care (01) ==
PROVIDERS: Emergency Provider Emergency Medicine
DX: N23 Unspecified renal colic (principal); R11.0 Nausea; Z51.81 Encounter for therapeutic drug level monitoring; Z79.899 Other long term (current) drug therapy
CPT/HCPCS: 36415; 74176; 80053; 80307; 81001; 83690; 85025; 96361; 96374; 96375; 96376; 99284; J1171; J1885; J2405

== ENCOUNTER → 2025-08-18 06:26 | Outpatient (BNV) | payer OTHER, SELFPAY | PROVIDERS: Emergency Provider Emergency Medicine; Visit Provider Radiology Diagnostic Radiology | DX: N20.1 Calculus of ureter (principal) | CPT/HCPCS: 74176 ==

== ENCOUNTER 2025-09-20 14:47 | Outpatient (AMB) | payer OTHER, SELFPAY ==
--- NOTE | 2025-09-20 14:56 | A.OFFVIS_ITS ---
Intake Visit Reasons: kidney stone Intake Note: patient presents today for: kidney stones urology medications: tamsulosin blood thinners: none Senior Technical Support Engineer Required: No Accompanied by: Self / Same As Patient Allergies No Known Allergies Allergy (Verified 09/20/25 14:58) PFSH Social History Alcohol intake: never Substance Use Type: Marijuana Results AMB Urinalysis, Automated UA Leukoctes 0 Ailyn/uL Last Edit by KIRSTEN Patino on 09/20/25 15:35 UA Nitrite Last Edit by KIRSTEN Patino on 09/20/25 15:35 UA Urobilinogen 0.2 mg/dL Last Edit by KIRSTEN Patino on 09/20/25 15:3 5 UA Protein 15 mg/dL Last Edit by Kimberly Todd CCM on 09/20/25 15:35 UA pH 6.0 Last Edit by KIRSTEN Patino on 09/20/25 15:35 UA Blood 0 Robin/uL Last Edit by KIRSTEN Patino on 09/20/25 15:35 UA Specific [place] 1.025 Last Edit by KIRSTEN Patino on 09/20/25 15: 35 UA Ketone Last Edit by KIRSTEN Patino on 09/20/25 15:35 UA Bilirubin 0 mg/dL Last Edit by Kimberly Todd CCM on 09/20/25 15:35 UA Glucose 0 mg/dL Last Edit by KIRSTEN Patino on 09/20/25 15:35 Assessment & Plan Assessment & Plan Orders: Orders AMB Urinalysis Automated Today Z13.9 - Encounter for screening, unspecified Coding
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
== END 2025-09-20 15:27 | disposition home or self-care (01) ==
LOC: HO.HUSH 14:48
PROVIDERS: Visit Provider Urology
DX: Z13.9 Encounter for screening, unspecified (principal)

== ENCOUNTER → 2025-09-20 14:47 | Outpatient (BNVA) | payer OTHER, SELFPAY | PROVIDERS: Visit Provider Urology | DX: N20.0 Calculus of kidney (principal); Z13.9 Encounter for screening, unspecified | CPT/HCPCS: 81003; 99202 ==

== ENCOUNTER 2025-11-12 08:34 | Day surgery (SDC) | payer OTHER, SELFPAY ==
--- OUTSIDE RECORDS SUMMARY | 2025-10-23 11:38 | XMS_ITS | Encounter Summary ---
Author Organization [facility] Address [address] [place] [address] Care Team Providers Care Lockstitch Binder Name Role Phone Dave Mason MD Primary Care Provider [phone] Encounter Details Date Type Department Care Team (Late Contact Info) Description 10/17/2025 Results Follow-Up Gastroenterology - [address] [facility] [address] [place] [phone] Oliva Ambriz NP [address] [address] Social History Tobacco Use Types Packs/Day Years Used Date Smoking Tobacco: Every Day Smokeless Tobacco: Never Alcohol Use Standard Drinks/Week Comments Not Currently [...] Orientation Straight 04/03/2025 12 :15 PM EDT documented as of this encounter Plan of Treatment Upcoming Encounters Date Type Department Care Team (Late Contact Info) Description 02/25/2026 2:00 PM EDT Office Visit Adult Medicine [address] [phone] Dave Mason MD [address] [place] [address] 06/17/2026 1:00 PM EDT Office Visit Gastroenterology - [address] [facility] [address] [place] [address] Oliva Ambriz, YULISA [address] [address] documented as of this encounter Visit Diagnoses Not on filedocumented in this encounter Care Teams Lockstitch Binder Relationship Specialty Start Date End Date Dave Mason MD [address] [place] [phone] PCP - General Internal Medicine 10/17/13 documented as of this encounter
--- OUTSIDE RECORDS SUMMARY | 2025-10-23 11:38 | XMS_ITS | Clinical Summary ---
Author Organization [facility] [address] [place] [address] [place] [phone] Phone Care Team Providers Care Race Engine Builder Name Role Phone Dave Mason MD Primary Care Provider [phone] Allergies No known active allergies Medications secukinumab (Cosentyx Pen) 150 mg/mL pen injector Sig - Route: Inject 300 mg into the skin See Admin Instructions. Inject 300 mg on Week 0,1,2,3,4 - Subcutaneous 10/22/20 20 Active secukinumab (Cosentyx Pen) 150 mg/mL pen injector Inject 2 mL (300 mg total) under the skin every 28 (twenty-eight) days. 10/01/20 21 Active polyethylene glycol (Golytely) 236-22.74-6.74 -5.86 gram solution Take 4L by mouth once for one dose. May substitue any PEG. Starting at 6PM the night before your procedure drink 1 8oz glasses at your own pace until you complete half of the gallon. Finish 2nd half of the gallon 5 hours before your procedure. 4000 mL 04/02/20 25 Active bisacodyL (DULCOLAX) 5 mg EC tablet Take 2 tablets by mouth right before beginning bowel prep. See instructions provided by the office 2 tablet 04/02/20 25 Active lidocaine HCl-hydrocorti son ac 3-0.5 % cream Use daily 7 g 04/12/20 25 Active omeprazole (PriLOSEC) [address] capsule Take 1 capsule (20 mg total) by mouth 1 (one) time each day. Do not crush or chew. 90 each 1 10/16/20 25 Active lidocaine HCl-hydrocorti son ac 3-1 % (7 gram) kit Apply bid prn 1 kit 03/29/20 25 025 Discontinued Active Problems Problem Noted Date Diagnosed Date Obesity (BMI 30-39.9) 10/05/2018 Gastroesophageal reflux disease without esophagi tis 03/14/2018 Tobacco use disorder 07/10/2010 Psoriasis 05/18/2010 Overview (11/27/2024): Cosentyx started 04/13 Hemorrhoids 04/19/2007 Encounters Date Type Department Care Team Description 10/17/2025 Results Follow-Up Gastroenterology - [address] [place] [address] Oliva Ambriz NP 10/16/2025 2:00 PM EST Lab Draw Station [address] Polyarthralgia; Mass of anus; Abdominal bloating; Screening for diabetes mellitus; Screening for lipid disorders 10/16/2025 1:30 PM EST Office Visit Adult Medicine [address] [phone] Maksim Nation PA Psoriasis (Primary Dx); Gastroesophageal reflux disease, unspecified whether esophagitis present; Polyarthralgia; Screening for diabetes mellitus; Screening for lipid disorders; Abnormal brain MRI from Last 3 Months Immunizations Immunization Administration Dates Next Due DTP [...] 04/04/2025 9:51 AM EDT Temperature 36.6 C (97.9 F) 10/16/2025 12:55 PM EST Respiratory Rate 14 10/16/2025 12:55 PM EST Oxygen Saturation 100% 04/04/2025 9:51 AM EDT Inhaled Oxygen Concentration - - Weight 87.1 kg (192 lb) 10/16/2025 12:55 PM EST Height 170.2 cm (5' 7 ) 10/16/2025 12:55 PM EST Body Mass Index 30.07 10/16/2025 12:55 PM EST Plan of Treatment Upcoming Encounters Date Type Department Care Team (Late st Contact Info) Description 02/25/2026 2:00 PM EDT Office Visit Adult Medicine [facility] [address] [place] [address] Dave Mason MD [address] [place], [place] 06/17/2026 1:00 PM EDT Office Visit Gastroenterology - [address] [phone] Oliva Ambriz, GUILLOTINE OPERATOR [address] [phone] Health Maintenance Due Date Last Done Comments [...] Additional history exists Cholesterol Screening (Lipid Panel) 10/16/2030 10/16/2025, 05/08/2024, 05/08/2024 RSV Immunization Adult Patients (1 [...] Procedure Name Priority Date/Time Associated Diagnosis Comments RHEUMATOID FACTOR Routine 10/16/2025 2:0 0 PM EST Polyarthralgia URIC ACID Routine 10/16/2025 2:00 PM EST Polyarthralgia BORRELIA BURGDORFERI ANTIBODY Routine 10/16/2025 2:00 PM EST Polyarthralgia LIPID PANEL WITH REFLEX TO DIRECT LDL Routine 10/16/2025 2:00 PM EST Screening for lipid disorders HEMOGLOBIN A1C Routine 10/16/2025 2:00 PM EST Screening for diabetes mellitus BASIC METABOLIC PANEL Routine 10/16/2025 2:00 PM EST Mass of anus Abdominal bloating FERMÍN IFA WITH TITER AND PATTERN Routine 10/16/2025 2:00 PM EST Polyarthralgia DEPRESSION SCREENING Routine 02/21/2024 HEPATITIS C SCREENING Routine 03/03/2017 from Last 3 Months or Most Recently Relevant to Health Maintenance Results * (ABNORMAL) Lipid panel with reflex to direct LDL (10/16/2025 2:00 PM EST) Cholesterol 189 0 - 200 mg/dL 10/16/2025 4:56 PM EST [facility] Triglycerides 110 0 - 150 mg/dL 10/16/2025 4:56 PM EST [facility] HDL 53 >=40 mg/dL 10/16/2025 4:56 PM EST [facility] LDL Calculated 114(H) 0 - 100 mg/dL 10/16/2025 4:56 PM EST [facility] Comment:Estimated LDL Calcul ated using equation: Total cholesterol - HDL cholesterol - (Triglycerides/5) VLDL Cholesterol Marty 22 mg/dL 10/16/2025 4:56 PM [facility] Non HDL Chol. (LDL+VLDL) 136 <145 mg/dL 10/16/2025 4:56 PM [facility] Chol/HDL Ratio 3.6 0.0 - 4.4 10/16/2025 4:56 PM [facility] Blood Venous blood specimen / Unknown Venipuncture / Unknown 10/16/2025 2:00 PM EST 10/16/2025 2:00 PM EST Maksim DAS LAB BLOOD ORDERABLES Fi nal Result Performing Organization Address City/[facility]/ZIP Co de Phone Number [facility] [address] [place] [address], [place] [phone] * FERMÍN IFA with titer and pattern (10/16/2025 2:00 PM EST) Pathologist [facility] FERMÍN Negative Negative 10/18/2025 2:27 PM EST [facility] Comment:FERMÍN performed by ind irect immunofluorescence (IFA) using HEp-2 substrate. Blood Venous blood specimen / Unknown Venipuncture / Unknown 10/16/2025 2:00 PM EST 10/16/2025 2:00 PM EST Maksim DAS LAB BLOOD ORDERABLES Fi nal Result [facility] [address] [place] [address], [place] [phone] * Borrelia burgdorferi antibody (10/16/2025 2:00 PM EST) Pathologist [facility] Lyme Ab Negative Negative LAB CHEMISTRY METHOD 10/17/2025 11:06 AM EST [facility] Comment: No laboratory evidence of infection with B. burgdorferi (Lyme disease). Negative results may occur in patients recently infected (<=14 days) with B. burgdorferi. If recent infection is suspected, repeat testing on a new sample collected in 7- 14 days is recommended. Blood Venous blood specimen / Unknown Venipuncture / Unknown 10/16/2025 2:00 PM EST 10/16/2025 2:00 PM EST [facility] [employer] [facility] BLOOD ORDERABLES Fi nal Result Performing Organization Address [facility]/ZIP Co de Phone Number [facility] [address] [place] [address], * Rheumatoid factor (10/16/2025 2:00 PM EST) Rheumatoid Factor <3.5 <15.0 I Unit/mL 10/16/2025 5:04 PM EST [facility] Blood Venous blood specimen / Unknown Venipuncture / Unknown 10/16/2025 2:00 PM EST 10/16/2025 2:00 PM EST [facility] LAB BLOOD ORDERABLES Fi nal Result Performing Organization Address [facility]/ZIP Co de Phone Number [facility] [address] [place] [address], [place] [phone] * Uric acid (10/16/2025 2:00 PM EST) Uric Acid 6.4 3.7 - 9.2 mg/dL 10/16/2025 4:52 PM EST [facility] Blood Venous blood specimen / Unknown Venipuncture / Unknown 10/16/2025 2:00 PM EST 10/16/2025 2:00 PM EST [employer] [facility] LAB BLOOD ORDERABLES Fi nal Result Performing Organization Address City/[facility]/ZIP Co de Phone Number [facility] [address] [place] [address], * Hemoglobin A1c (10/16/2025 2:00 PM EST) [facility] Hemoglobin A1C 5.5 <6.5 % LAB CHEMISTRY METHOD 10/16/2025 9:45 PM EST [facility] Mean Bld Glu Estim. 111 mg/dL LAB CHEMISTRY METHOD 10/16/2025 9:45 PM [facility] Blood Venous blood specimen / Unknown Venipuncture / Unknown 10/16/2025 2:00 PM EST 10/16/2025 2:00 PM EST Maksim Nation MD LAB BLOOD ORDERABLES Fi nal Result Performing Organization Address [facility]/ZIP Co de Phone Number [facility] [address] [place] [address], * Basic metabolic panel (10/16/2025 2:00 PM EST) [facility] Sodium 142 133 - 145 mmol/L 10/16/2025 4:54 PM [facility] Potassium 5.1 3.5 - 5.5 mmol/L 10/16/2025 4:54 PM [facility] Chloride 104 96 - 110 mmol/L 10/16/2025 4:54 PM [facility] CO2 29 21 - 32 mmol/L 10/16/2025 4:54 PM [facility] Anion Gap 9 3 - 11 10/16/2025 4:54 PM [facility] Glucose 92 70 - 100 mg/dL 10/16/2025 4:54 PM [facility] BUN 11 5 - 25 mg/dL 10/16/2025 4:54 PM [facility] Creatinine 1.04 0.70 - 1.30 mg/dL 10/16/2025 4:54 PM EST [facility] eGFR 95 >=60 mL/min/1. 73m2 10/16/2025 4:54 PM [facility] Comment:Calculation based on the Chronic Kidney Disease Epidemiology Collaboration (CKD-EPI) equation refit without adjustment for race. BUN/Creatinine Ratio 10.6 10/16/2025 4:54 PM [facility] Calcium 10.0 8.5 - 10.5 mg/dL 10/16/2025 4:54 PM [facility] Blood Venous blood specimen / Unknown Venipuncture / Unknown 10/16/2025 2:00 PM EST 10/16/2025 2:00 PM EST Oliva Ambriz GUILLOTINE OPERATOR LAB BLOOD ORDERABLES Final Resu lt [facility] [address] [place] [address], * Depression Screening (02/21/2024) Pathologist [facility] Depression Screening abstracted Historical Provider HEALTH MAINTENANCE Final Result * Hepatitis C Screening (03/03/2017) Pathologist [facility] Hepatitis C Screening abstracted Historical Provider HEALTH MAINTENANCE Final Result from Last 3 Months or Most Recently Relevant to Health Maintenance Insurance [facility] Care Teams Race Engine Builder Relationship Specialty Start Date End Date Dave Mason MD [address] [place] [phone] PCP - General Internal Medicine 10/17/13
--- NOTE | 2025-11-08 10:03 | HO.ANESPROP2 ---
Documented by User: Ananya Neri NP 11/08/25 10:07 HPI - Anesthesia Eval Consult details Narrative: 35yo M for Right Lithotripsy ESW PMF Active Problems Active Problems: All Active Problems Bilateral kidney stones (Acute) Right renal stone (Acute) Past Medical History Medical History Renal calculi Psoriasis Polyarthralgia GERD (gastroesophageal reflux disease) Social History Social History Alcohol intake: never Patient Tobacco Use Status: Current everyday Tobacco user Tobacco use type: Cigarette Cigarettes Per Day: 2 Smoked in Last 30 Days: Yes Use of substances other than those prescribed or required for medical reasons: No Substance Use Type: Marijuana Substance Use Type Other:: smoking Substance Use Frequency: Daily Have you been hit, kicked, punched, or otherwise hurt by someone within the past year? If so, by whom?: No Are you DNR?: No Advance Directives: No Advance Directives Information Provided: Yes Meds Allergies Allergy/AdvReac Type Severity Reaction Status Date / Time No Known Allergies Allergy Verified 11/12/25 09:16 Home Medications ?Medication ?Instructions ?Recorded ?Confirmed ?Last Taken ?Type tamsulosin 0.4 mg capsule 0.4 mg PO DAILY 11/08/25 11/12/25 Unknown History Assessment and Plan Assessment Anesthesia Assessment: Chart Reviewed Documented by User: Jeffy Guevara MD 11/12/25 10:25 [facility] Past Medical History Medical History Renal calculi Psoriasis Polyarthralgia GERD (gastroesophageal reflux disease) Cognitive capacity: normal Functional capacity: independent ambulation Family History Family history of problems with anesthesia: No Surgical History History of Problems with Anesthesia: No Social History Social History Alcohol intake: never Patient Tobacco Use Status: Current everyday Tobacco user Tobacco use type: Cigarette Cigarettes Per Day: 2 Smoked in Last 30 Days: Yes Use of substances other than those prescribed or required for medical reasons: No Substance Use Type: Marijuana Substance Use Type Other:: smoking Substance Use Frequency: Daily Have you been hit, kicked, punched, or otherwise hurt by someone within the past year? If so, by whom?: No Are you DNR?: No Advance Directives: No Advance Directives Information Provided: Yes Meds Allergies Allergy/AdvReac Type Severity Reaction Status Date / Time No Known Allergies Allergy Verified 11/12/25 09:16 Home Medications ?Medication ?Instructions ?Recorded ?Confirmed ?Last Taken ?Type tamsulosin 0.4 mg capsule 0.4 mg PO DAILY 11/08/25 11/12/25 Unknown History Exam Exam Date and Time: 11/12/2025 Airway TM Dist: >3cm Neck ROM: Full Loose/Missing/Broken Teeth: No Heart: rrr Lungs: cta Other: normal Assessment and Plan Assessment Anesthesia Assessment: Anesthesia Plan Discussed and Smoking Cess. Discussed Final Anesthetic Review Family History of Problems with Anesthesia: No History of Problems with Anesthesia: No NPO: Yes ASA Class: II Final Preanesthetic Review: No Changes in Pt Med Stat, Meds/Allgs Chart Reviewed, Consent Obtained/Reviewed and Anes Risks/Benef Reviewed Patient Risk: Low Procedure Risk: Low Anesthetic Plan Anesthetic Plan: GA Disposition: Standard PACU
[2025-11-12] VITALS (11 sets, daily range): BP systolic 126–138; BP diastolic 59–99; PULSE 54–75; RESP 11–25; TEMP 36.3–36.8; O2SAT 98–100; BMI 29.3
--- NOTE | ~2025-11-12 | XR_ITS ---
EXAMINATION: XR ABDOMEN KUB CLINICAL INDICATION: right renal stone COMPARISON: None. Correlation made with CT abdomen and pelvis 08/18/2025. TECHNIQUE: AP view of the abdomen, supine. FINDINGS: Bowel gas pattern is normal/nonspecific. There is no focally dilated loop. Mild to moderate retained fecal material seen throughout the colon. No abnormal soft tissue calcifications. Specifically, no calcifications overlying the right renal shadow or along the expected course of the right ureter. (Unfortunately, stool overlies the inferior pole, in the region of the known renal calculus.) Stable pattern of phleboliths within the pelvis. No organomegaly or large abdominal mass. Lung bases not included on the imaging. No suspicious bone lesion evident. Mild degenerative changes of the SI joints, right greater than left. XR/XR KUB IMPRESSION: 1. No definite soft tissue calcifications overlying the right renal shadow or expected course of the right ureter. 2. Mild to moderate constipation. No abnormal dilatation of bowel loop. Electronically signed by: Jeff Bingham MD 11/12/2025 09:01 AM [facility]
[2025-11-12] MEDS: Lactated Ringers 1,000 ML 100 ML IVCONT (09:22)
--- NOTE | 2025-11-12 11:07 | MHC.SHP ---
Pre-Procedural Eval Section A - 24 Hr Update-Section A only Date of Service: 11/12/25 The patient has been examined within 24 hours of the surgical procedure. The History & Physical has been completed within 30 days and I have reviewed it.: Yes Section B - Complete if H&P > 30 days Chief Complaint: Calculus of kidney, right Allergies: Allergies Allergy/AdvReac Type Severity Reaction Status Date / Time No Known Allergies Allergy Verified 11/12/25 09:16 Plan Diagnosis/Plan: Unchanged I have reviewed the history and physical and performed a pertinent physical examination on my patient. No changes have occurred unless specified. Right ESWL. Discussed risks to include but not limited to, blood in the urine, bruising to the skin, kidney hematoma, possible need for another procedure if a stone fragment obstructs the ureter while passing, possible need to repeat procedure if stone is not completely fragmented. Time Spent With Patient Time: Total time managing care of this patient today ____ minutes.
--- NOTE | 2025-11-12 11:56 | W.PM.OPN ---
Operative Note Operative Note Date of Service: 11/12/25 Narrative: PreOperative Diagnosis:? ? Right Renal stone Post Operative Diagnosis:?Right Renal stone Procedure:?Right ESWL Surgeon:?Dr Perry Mario Anesthesia:? General Indications for procedure: The patient understands there is a risk of bruising or hematoma to the kidney, infection, and stone migration following the procedure and subsequent intervention may be required.? - Imaging 6 mm x 4mm stone Procedure: After informed consent was verified the patient was brought to the operating room and placed in a supine position.? Anesthesia was performed per protocol. Safety pause time-out was performed. Imaging was displayed in the room and laterality confirmed. ESWL was performed.?The stone was visualized on both fluoroscopy and ultrasound.? Shockwave lithotripsy was performed, with a maximum rate of 120 hertz. After the first 300 shocks a pause for 3 minutes was completed.? A total of 2500 shocks to a maximum of power of 18 with a maximum rate of 120 hertz.? Good fragmentation of the stone was appreciated. The patient tolerated the procedure well and was transferred to the recovery area upon completion. Complications: None
== END 2025-11-12 13:30 | disposition home or self-care (01) ==
PROVIDERS: Visit Provider Urology
PROC: (CPT 50590; principal; 2025-11-12 10:30)
DX: N20.0 Calculus of kidney (principal); Z87.442 Personal history of urinary calculi; L40.9 Psoriasis, unspecified; M25.50 Pain in unspecified joint; Z79.899 Other long term (current) drug therapy; F17.210 Nicotine dependence, cigarettes, uncomplicated
CPT/HCPCS: 50590; 74018; J0131; J0690; J1100; J1938; J2003; J2405; J2704; J3010

== ENCOUNTER → 2025-11-12 08:34 | Outpatient (BNV) | payer OTHER, SELFPAY | PROVIDERS: Visit Provider Urology | DX: N20.0 Calculus of kidney (principal) | CPT/HCPCS: 50590 ==

== ENCOUNTER → 2025-11-12 08:40 | Outpatient (BNV) | payer OTHER, SELFPAY | PROVIDERS: Visit Provider Radiology Diagnostic Radiology | DX: N20.0 Calculus of kidney (principal); K59.00 Constipation, unspecified | CPT/HCPCS: 74018 ==